=== PATIENT | female | born 1940 | race Caucasian/White ===

== ENCOUNTER 2018-01-14 10:25 | Inpatient (IN) ==
[2018-01-14] MEDS ORDERED: 0.9 % Sodium Chloride 1,000 ML IVC ONE (10:29)
--- NOTE | 2018-01-14 10:39 | Emergency Department Note ---
Disposition Clinical Impression: Pyelonephritis Disposition: Admitted As Inpatient Condition: Fair General Adult HPI - General Chief complaint: ED General Medical Stated complaint: Nephrostomy issue Time Seen by Provider: 01/14/18 10:29 Source: patient Mode of arrival: ambulatory Limitations: no limitations Nursing Notes Reviewed: Yes Vital Signs Reviewed: Yes - History of Present Illness HPI Narrative: Patient presents today from interventional radiology after she was having her nephrectomy tube placed. Patient states tubes replaced secondary to renal failure. The patient was seen over the weekend secondary to nephrectomy tube was leaking. Urology and interventional radiology agreed on replacements today. Upon refractory tube replacement was described as ezequiel pus was obtained from both kidneys the right being worse than the left. The patient is well-known to the interventional radiology staff and they state that she is not quite herself today. On evaluation with the patient she states that she feels more weak than usual. She is Joshua starting to feel somewhat improved since the first 3 tubes were replaced. She describes decreased appetite and generalized weakness and fatigue. No fevers or chills. The nephrectomy sites did not show any signs of infection. Patient did present to the emergency department with initial heart rate greater than 100. White count 14 and no source of infection. Sepsis order set utilized. - Related Data Home Medications Medication Instructions Recorded Confirmed Amlodipine Besylate 10 mg PO DAILY 01/14/18 01/14/18 Fluticasone Propionate Nasal 2 spr NS DAILY PRN 01/14/18 01/14/18 [Flonase] Lisinopril [Zestril] 20 mg PO DAILY 01/14/18 01/14/18 Loratadine [Allergy Relief] 10 mg PO DAILY 01/14/18 01/14/18 Allergies Allergy/AdvReac Type Severity Reaction Status Date / Time No Known Allergies Allergy Verified 01/12/18 17:40 Review of Systems: CONSTITUTIONAL: Weakness and fatigue. No fevers or chills. HEENT: Eyes: No visual changes. Ears, Nose, Throat: No hearing loss, difficulty talking or unable to swallow. SKIN: No rash or itching. CARDIOVASCULAR: No chest pain, chest pressure or chest discomfort. No palpitations or edema. RESPIRATORY: No shortness of breath, cough or sputum. GASTROINTESTINAL: Decreased appetite. No abdominal pain GENITOURINARY: No burning on urination or hematuria. NEUROLOGICAL: No headache, dizziness, syncope, paralysis, ataxia, numbness or tingling in the extremities. No change in bowel or bladder control. MUSCULOSKELETAL: No muscle pain, back pain, joint pain or stiffness. Past Medical History - Past Medical History Medical history: Reports: cancer, hyperlipidemia, hypertension, kidney stones, renal disease, other Surgical history: Reports: other Psychiatric history: Reports: no psych history [employer]IAN history: Reports: cervical cancer - Social History Smoking Status: Never smoker Smokeless Tobacco Status: No Alcohol use: Reports: none Drug use: Reports: none Physical Exam General: Well appearing, nontoxic, no acute distress Head: Normocephalic Atraumatic Eyes: PERRL, EOMI ENT: Airway patent, no stridor Neck: supple, no meningismus Chest: Lungs clear to auscultation bilateral Cardiac: Regular rate and rhythm, no murmurs, rubs or gallops Abdomen: soft, nontender, nondistended; no guarding, rebound, or tenderness to percussion Musculoskeletal: Calves symmetric, nontender, no palpable cord Skin: No rash, normal skin tone Neuro: Alert and Oriented to person, place, and time; No focal deficit, CN 2-12 symmetric and intact Course - Consultations Consultation #1: Discussed with urology, Dr. Freeman. Treat as per infection. He will consult if needed but does not believe this will be needed. Consultation #2: Discussed with Dr. Givens. No previous cultures. Ceftriaxone requested. Unasyn was given 1.5 mg prior to being in the ED.
[2018-01-14 11:18] LABS: Albumin 3.9 g/dL (3.5-5.7); Albumin/Globulin Ratio 0.8 (1.1-2.2); Bilirubin,Total 0.3 mg/dL (0.3-1.0); Calcium 9.8 mg/dL (8.6-10.3); Globulin 4.7 g/dL (2.4-3.5); Potassium 5.5 mEq/L (3.5-5.1); Total Protein 8.6 g/dL (6.4-8.9)
[2018-01-14] MEDS ORDERED: Ampicillin/Sulbactam 1,500 MG in 0.9 % Sodium Chloride Mini Bag 100 ML IVPB ONE (11:20)
[2018-01-14] MEDS ORDERED: cefTRIAXone 2,000 MG in 0.9 % Sodium Chloride Mini Bag 100 ML IVPB ONE (12:06)
[2018-01-14] MEDS ORDERED: Naloxone 0.4 MG/ML INJ IVP PRN (12:17)
[2018-01-14] MEDS ORDERED: Fluticasone Propionate Nasal 50 MCG/SPRAY BOTTLE NS PRN (12:20)
--- NOTE | 2018-01-14 12:28 | Internal Med History&Physical ---
Date of Encounter: 01/14/18 Time of Encounter: 12:45 Internal Medicine - H&P: HPI Chief complaint: Leaking nephrostomy tube Admitted From: Home Plans for Post Hospital Care: Home History of present illness: Ms. Alcantar is a 77 year old female who presented from cardiology after she had both nephrostomy tubes replaced. Upon replacement urine was described as ezequiel polyps from both sites but more on the right. Patient denied having any fever but she states that she was feeling very weak and not herself. She had decreased appetite and more fatigued. No fever or chills. No chest pain shortness of breath no abdominal pain no changes in bowel movement. She was seen by urology are in agreement with nephrostomy tube changes and admission. Past Med Surg Social Fam HX - Past Medical History Medical history: cancer, hyperlipidemia, hypertension, kidney stones, renal disease, other Additional medical history: hx of cervical cancer with radiation Psychiatric history: no psych history - Past Surgical History Surgical History: other Additional surgical history: bi-lat nephrostomy tube - Social History Smoking Status: Never smoker Smokeless Tobacco Status: No Alcohol use: none Drug use: none - Family History Mother Hx Family Cancer: Yes Internal Medicine - H&P: Meds Amlodipine Besylate 10 mg PO DAILY 01/14/18 [History] Fluticasone Propionate Nasal [Flonase] 2 spr NS DAILY PRN 01/14/18 [History] Lisinopril [Zestril] 20 mg PO DAILY 01/14/18 [History] Loratadine [Allergy Relief] 10 mg PO DAILY 01/14/18 [History] 3 Allergy/AdvReac Type Severity Reaction Status Date / Time No Known Allergies Allergy Verified 01/12/18 17:40 ROS unobtainable: due to mental status All Systems PM: A 10-system review of systems was performed and is negative for pertinent findings except as documented above in the HPI. - Constitutional Vitals: Temp Pulse Resp BP Pulse Ox 98.3 F 76 16 143/76 97 01/14/18 10:34 01/14/18 10:34 01/14/18 10:34 01/14/18 10:34 01/14/18 10:34 - Head Head exam: Present: atraumatic, normocephalic - Eye Eye exam: Present: PERRL, conjuntiva pink, sclera anicteric Pupils: Present: PERRL - Neck Neck exam general surgery: Present: supple, trachea midline. Absent: lymphadenopathy - Respiratory Respiratory exam: Present: CTAB. Absent: accessory muscle use, rales, rhonchi, wheezes - Cardiovascular Cardiovascular exam: Present: RRR, +S1, +S2. Absent: diastolic murmur, gallop, rubs, systolic murmur - GI/Abdominal GI/Abdominal exam: Present: normal bowel sounds, soft, no peritoneal signs. Absent: distended, tenderness Additional comments: Bilateral nephrostomy tubes - Extremities Exam Extremities exam: Present: warm, radial pulses palpable and symmetrical. Absent : calf tenderness, cyanotic, pedal edema - Neurological Exam Neurological exam: Present: CN II-XII intact, oriented X3, no focal deficits. Absent: pronater drift, facial droop, speech deficit Internal Med - H&P Results - Labs CBC & Chem 7: 01/14/18 10:39 - Assessment and plan (1) Urinary tract infection Current Visit: Yes Status: Acute Assessment and plan: Patient was given IV Unasyn before presentation to the emergency department Urine culture and blood cultures We will start the patient on IV ceftriaxone Check pro-calcitonin level Follow culture results Will get basic lab with CBC. Patient is afebrile Qualifiers: Qualified Code(s): N39.0 - Urinary tract infection, site not specified (2) Malfunction of nephrostomy tube Current Visit: No Status: Acute Assessment and plan: Status post bilateral nephrostomy tubes replacement (3) Hyperkalemia Current Visit: Yes Status: Acute Assessment and plan: Potassium was found to be 5.5 Continue with IV hydration We will give her a dose of Kayexalate. Repeat potassium level NPM and manage accordingly (4) Acute kidney injury Current Visit: Yes Status: Acute Assessment and plan: Superimposed on chronic kidney disease stage IV. Creatinine is above baseline IV hydration was normal saline Hold lisinopril. Avoid nephrotoxic agents Monitor kidney function tests (5) On esomeprazole prophylaxis Current Visit: Yes Status: Acute (6) DVT prophylaxis Current Visit: Yes Status: Acute - Time Spent With Patient Total time spent is greater than 50% in coordination of care (as documented) at patient's floor/unit and/or counseling patient:
[2018-01-14 12:41] LABS: Basophils % 0.1 %; Hematocrit 27.1 % (35.3-44.9); Hemoglobin 8.5 g/dL (11.5-15.4); Immature Granulocytes % 1.4 % (0-4); Lymphocytes # 0.4 K/mcL (0.6-4.6); Lymphocytes % 3.2 %; Mean Corpuscular HGB Conc 31.4 g/dL (31.6-35.5); Mean Corpuscular Hemoglobin 31.8 pg (28.0-33.3); Mean Corpuscular Volume 101.5 fL (83.0-100.0); Mean Platelet Volume 8.7 fL (9.4-12.4); Monocytes # 0.7 K/mcL (0.0-1.3); Monocytes % 5.4 %; Neutrophils # 11.8 K/mcL (1.6-8.9); Platelet Count 386 K/mcL (140-400); Red Blood Count 2.67 M/mcL (3.82-4.97); Red Cell Distribution Width 14.7 % (11.5-14.5); Segmented Neutrophils % 89.9 %
[2018-01-14] MEDS: 0.9 % Sodium Chloride 1,000 ML IVC SCH (13:31)
[2018-01-14 14:09] LABS: Bilirubin,Urine Negative (Negative); Blood,Urine Large (Negative); Clarity,Urine Turbid (Clear); Color,Urine Yellow (Yellow); Glucose,Urine (UA) Normal (Normal); Ketones,Urine Negative (Negative); Leukocyte Esterase,Urine Large (Negative); Nitrite,Urine Negative (Negative); Protein,Urine 100 mg/dL (Neg-Trace); Specific Gravity,Urine 1.019 (1.010-1.025); Urobilinogen,Urine Normal (Normal)
[2018-01-14 14:11] LABS: Bacteria,Urine None Seen per hpf (None-Few); Hyaline Casts,Urine None Seen per lpf (None-Few); RBC,Urine TNTC per hpf (0-3); Squamous Epithelial Cell,Urine None Seen per lpf (None-Few); WBC,Urine TNTC per hpf (0-3)
[2018-01-14] MEDS: *HR* Heparin 5,000 UNIT/ML VIAL SQ SCH (17:45)
[2018-01-15] MEDS: 0.9 % Sodium Chloride 1,000 ML IVC SCH (02:50)
[2018-01-15 05:56] LABS: Basophils % 0.2 %; Eosinophils % 0.1 %; Hematocrit 20.5 % (35.3-44.9); Immature Granulocytes % 2.2 % (0-4); Lymphocytes # 0.7 K/mcL (0.6-4.6); Lymphocytes % 7.5 %; Mean Corpuscular HGB Conc 31.2 g/dL (31.6-35.5); Mean Corpuscular Hemoglobin 30.9 pg (28.0-33.3); Mean Platelet Volume 8.7 fL (9.4-12.4); Monocytes # 0.5 K/mcL (0.0-1.3); Monocytes % 5.3 %; Neutrophils # 7.3 K/mcL (1.6-8.9); Platelet Count 301 K/mcL (140-400); Red Blood Count 2.07 M/mcL (3.82-4.97); Red Cell Distribution Width 14.8 % (11.5-14.5); Segmented Neutrophils % 84.7 %
[2018-01-15 05:59] LABS: Hemoglobin 6.4 g/dL (11.5-15.4)
[2018-01-15] MEDS ORDERED: *HR* Enoxaparin 30 MG/0.3 ML SYRINGE SQ SCH (06:00)
[2018-01-15] MEDS: *HR* Heparin 5,000 UNIT/ML VIAL SQ SCH ×2 (06:06→17:24)
[2018-01-15 06:18] LABS: Calcium 8.4 mg/dL (8.6-10.3); Potassium 4.4 mEq/L (3.5-5.1)
[2018-01-15] MEDS: cefTRIAXone 1,000 MG in Water for inj. (sterile) 20 ML 10 ML IVP SCH (07:09)
[2018-01-15] MEDS: amLODIPine 5 MG TABLET PO SCH (07:09)
[2018-01-15] MEDS: Loratadine 10 MG TABLET PO SCH (07:09)
[2018-01-15] MEDS ORDERED: 0.9 % Sodium Chloride 250 ML IVC SCH (17:45)
[2018-01-15] MEDS ORDERED: 0.9 % Sodium Chloride 500 ML ONE (21:10)
--- NOTE | 2018-01-15 21:45 | Internal Med Progress Note ---
Date of Encounter: 01/15/18 Time of Encounter: 21:45 - Assessment and plan (1) Urinary tract infection Current Visit: No Status: Acute Qualifiers: Urinary tract infection type: site unspecified Hematuria presence: without hematuria Qualified Code(s): N39.0 - Urinary tract infection, site not specified (2) Acute kidney injury Current Visit: Yes Status: Acute (3) Malfunction of nephrostomy tube Current Visit: No Status: Acute (4) Hypertensive renal disease with renal failure Current Visit: Yes Status: Chronic - Time Spent With Patient Total time spent is greater than 50% in coordination of care (as documented) at patient's floor/unit and/or counseling patient: 25 - 35 minutes - Subjective Interval history: .. The patient feels good. Other than feeling weak, she is not voicing any other problems. She is stronger than yesterday. Denies chest pain. Denies abdominal pain, nausea and vomiting. Her nephrostomy tubes are draining clear urine. They were replaced yesterday. OBJECTIVE: .. Skin: Free of rash and discoloration. Respiratory: Normal breath sounds; no crackles or wheezes. CV: Heart is regular; no gallop or murmur. GI: Abdomen is soft and not tender. There is no palpable mass or visceromegaly. Neuro: There is no focal deficits. ASSESSMENT AND PLAN: .. Urinary tract infection. Her urine is showing changes typical for urinary tract infection. Urine culture is pending. We will continue IV Rocephin. Acute kidney injury. Better after giving her IV fluids. I encouraged her to take a lot of oral fluids. Malfunctioning nephrostomy tubes. There were replaced yesterday. She does have them replaced every 3 months. Hyprtensive renal disease with renal failure. She is CK disease stage III. I anticipate her discharge tomorrow. - Constitutional Vitals: Temp Pulse Resp BP Pulse Ox 99.5 F 87 16 147/74 97 01/15/18 21:42 01/15/18 21:42 01/15/18 21:42 01/15/18 21:42 01/15/18 21:42 General appearance: Present: pleasant, no acute distress, answers questions appropriately Internal Medicine: Result - Labs CBC & Chem 7: 01/16/18 01:15 01/16/18 01:15 Labs: Short CBC 01/15/18 Range/Units 05:27 WBC 8.6 (4.3-11.1) K/mcL Hgb 6.4 L D (11.5-15.4) g/dL Hct 20.5 L (35.3-44.9) % Plt Count 301 (140-400) K/mcL Neutrophils # 7.3 (1.6-8.9) K/mcL BMP 01/15/18 05:27 Sodium 141 Potassium 4.4 Chloride 120 H Carbon Dioxide 10 L* BUN 63 H Creatinine 3.39 H Glucose 94 Calcium 8.4 L Consult Discharge Plan - Plan Referrals: Tamara Granda MD [Primary Care Provider] - (Web Request entered. Office will call patient at home with date and time of appt. Thank you) Prescriptions: Cefdinir [Omnicef] 300 mg PO BID #10 capsule
[2018-01-15] MEDS ORDERED: Simethicone 80 MG TAB.CHEW PO PRN (23:28)
[2018-01-16 01:57] LABS: Basophils % 0.3 %; Eosinophils # 0.1 K/mcL (0.0-0.6); Eosinophils % 0.5 %; Hematocrit 31.5 % (35.3-44.9); Immature Granulocytes % 5.8 % (0-4); Lymphocytes # 0.4 K/mcL (0.6-4.6); Lymphocytes % 3.8 %; Mean Corpuscular HGB Conc 32.7 g/dL (31.6-35.5); Mean Corpuscular Hemoglobin 30.8 pg (28.0-33.3); Mean Corpuscular Volume 94.3 fL (83.0-100.0); Mean Platelet Volume 8.6 fL (9.4-12.4); Monocytes # 0.3 K/mcL (0.0-1.3); Monocytes % 3.6 %; Nucleated Red Blood Cells 0.2 /100 WBC (0); Platelet Count 310 K/mcL (140-400); Red Blood Count 3.34 M/mcL (3.82-4.97); Red Cell Distribution Width 16.3 % (11.5-14.5)
[2018-01-16 02:24] LABS: Calcium 8.5 mg/dL (8.6-10.3); Magnesium 1.6 mg/dL (1.6-2.6); Potassium 4.4 mEq/L (3.5-5.1)
[2018-01-16 02:55] LABS: Hemoglobin 10.3 g/dL (11.5-15.4); Neutrophils # 8.1 K/mcL (1.6-8.9)
[2018-01-16 03:03] LABS: Platelet Estimate Normal (Normal)
[2018-01-16] MEDS: *HR* Heparin 5,000 UNIT/ML VIAL SQ SCH (05:43)
[2018-01-16 06:52] VITALS: BP 138/75
--- NOTE | 2018-01-16 10:02 | Discharge Summary ---
Date of Encounter: 01/16/18 Time of Encounter: 10:00 - Discharge Diagnosis (1) Urinary tract infection Priority: Primary Status: Acute Qualifiers: Urinary tract infection type: site unspecified Hematuria presence: without hematuria Qualified Code(s): N39.0 - Urinary tract infection, site not specified (2) Acute kidney injury Priority: Secondary Status: Acute (3) Malfunction of nephrostomy tube Priority: Secondary Status: Acute (4) Hypertensive renal disease with renal failure Priority: Secondary Status: Chronic Hospital course: Ms. Alcantar is a 77 year old female The patient was admitted to the hospital shortly after replacing her bilateral nephrostomy tube. Her urine showed 2 changes suspected for urinary tract infection. She complained of feeling weak and tiredin the last 2 days preceding this admission. she was found to have mild acute kidney injury on top of CKD stage III. We offered her IV Unasyn, substituted by IV Rocephin. We offered her IV fluids. Urine culture is not growing any organisms; it is preliminary. Her hemoglobin at admission was 8.5; had decreased to 6.4 after IV hydration. We transfused her with 2 units of packed red blood cells. We did not see any evidence for GI bleeding. This patient has had long-standing history of chronic anemia, likely secondary to chronic kidney disease. Her hemoglobin from today is 10.3. Her creatinine today is 3.10; baseline. She feels good. This is her baseline. Denies chest pain. Denies difficulty breathing, coughing and wheezing. Denies abdominal pain, nausea and vomiting. She does have bilateral nephrostomy tube. The urine drained to the collection bags is looking normal. I am discharging her home today. We will continue Omnicef for the next 5 days. Follow up with urology in about 3 months. She does have her nephrostomy tubes replaced every 3 months. Discharge discussed with: patient, nurse - Time Spent with Patient Total time spent providing and/or coordinating discharge services: Greater than 30 minutes (40 minutes) - Discharge Medications Prescriptions: Cefdinir [Omnicef] 300 mg PO BID #10 capsule Home Medications: Amlodipine Besylate 10 mg PO DAILY 01/14/18 [History] Fluticasone Propionate Nasal [Flonase] 2 spr NS DAILY PRN 01/14/18 [History] Lisinopril [Zestril] 20 mg PO DAILY 01/14/18 [History] Loratadine [Allergy Relief] 10 mg PO DAILY 01/14/18 [History] Cefdinir [Omnicef] 300 mg PO BID #10 capsule 01/16/18 [Rx] Allergies/Adverse Reactions: 3 Allergy/AdvReac Type Severity Reaction Status Date / Time No Known Allergies Allergy Verified 01/12/18 17:40 Date of admission: 01/14/18 12:17 Primary care physician: Tamara Granda Discharging clinician: Roland Hoang Anticipated date of discharge: 01/16/18 - Constitutional Vitals: Temp Pulse Resp BP Pulse Ox 99.3 F 88 16 138/75 97 01/16/18 06:42 01/16/18 06:42 01/16/18 06:42 01/16/18 06:42 01/16/18 06:42 General appearance: Present: pleasant, no acute distress, answers questions appropriately - Respiratory Respiratory exam: Present: CTAB. Absent: accessory muscle use, rales, rhonchi, wheezes - Cardiovascular Cardiovascular exam: Present: RRR, +S1, +S2. Absent: diastolic murmur, gallop, rubs, systolic murmur - GI/Abdominal GI/Abdominal exam: Present: normal bowel sounds, soft, no peritoneal signs. Absent: distended, tenderness - Patient Status Disposition: Home, Self-Care Condition: Good Functional capacity at discharge: independent ambulation - Discharge Instructions Follow Up With: Tamara Granda MD [Primary Care Provider] - (Web Request entered. Office will call patient at home with date and time of appt. Thank you) Forms: ED Satisfaction Letter, Work/School Release - Diet and Activity Activity: resume usual activities as tolerated - VTE Deep Vein Thrombosis/Pulmonary Embolism Present on Admission: No
[2018-01-16] MEDS: Loratadine 10 MG TABLET PO SCH (11:35)
[2018-01-16] MEDS: amLODIPine 5 MG TABLET PO SCH (11:35)
[2018-01-16] MEDS: cefTRIAXone 1,000 MG in Water for inj. (sterile) 20 ML 10 ML IVP SCH (11:36)
[2018-01-17 11:49] LABS: Acinetobacter baumannii by PCR Not Detected (Not Detect); Candida albicans by PCR Not Detected (Not Detect); Candida glabrata by PCR Not Detected (Not Detect); Candida krusei by PCR Not Detected (Not Detect); Candida parapsilosis by PCR Not Detected (Not Detect); Candida tropicalis by PCR Not Detected (Not Detect); Enterococcus by PCR Not Detected (Not Detect); Escherichia coli by PCR Not Detected (Not Detect); Klebsiella oxytoca by PCR Not Detected (Not Detect); Klebsiella pneumoniae by PCR ***DETECTED*** (Not Detect); Pseudomonas aeruginosa by PCR Not Detected (Not Detect); Serratia marcescens by PCR Not Detected (Not Detect); Staphylococcus aureus by PCR Not Detected (Not Detect); Streptococcus agalactiae(B)PCR Not Detected (Not Detect); Streptococcus by PCR Not Detected (Not Detect); Streptococcus pneumoniae PCR Not Detected (Not Detect); Streptococcus pyogenes (A) PCR Not Detected (Not Detect); blaKPC Carbapenem-Resist Gene Not Detected (Not Detect)
== END 2018-01-16 14:42 | disposition home or self-care (01) | DRG 690 ==
LOC: EMEROO 10:25 → 3ANU 10:25 → SUATTDRO 12:17 → 3ANU 12:43
PROVIDERS: ADMIT Internal Medicine; ATTEND Internal Medicine

== ENCOUNTER 2018-06-19 05:49 | Inpatient (IN) ==
--- NOTE | 2018-06-19 06:27 | Emergency Department Note ---
Disposition Clinical Impression: Nephrostomy tube failure with subsequent urine leak Infection associated with nephrostomy catheter Qualifiers: Encounter type: initial encounter Qualified Code(s): T83.512A - Infection and inflammatory reaction due to nephrostomy catheter, initial encounter Disposition: Admitted As Inpatient Condition: Good General Adult HPI - General Chief complaint: ED General Medical Stated complaint: Leaking R Neph Tube Time Seen by Provider: 06/19/18 06:06 Source: family Limitations: no limitations Nursing Notes Reviewed: Yes Vital Signs Reviewed: Yes - History of Present Illness HPI Narrative: 77 year old female with bilateral Nephrostomy Tubes presents with right tube leaking since 4 o'clock this morning (2 hours ago). The tubes were inserted in April and due to July. Pt emptied urine bag before came to ER. Pt stated it was clear urine. pt denied back pain. Denied chills and fever. Pt reported sepsis history due to delayed replacement of leaking tube in January. Pt's urologist is Dr. Freeman. Onset (ago): hour(s) (2) Location: back Radiation: non-radiation Pain Scale: 0 - Related Data Home Medications Medication Instructions Recorded Confirmed Amlodipine Besylate 10 mg PO DAILY 01/14/18 06/19/18 Fluticasone Propionate Nasal 2 spr NS DAILY PRN 01/14/18 06/19/18 [Flonase] Lisinopril [Zestril] 20 mg PO DAILY 01/14/18 06/19/18 Loratadine [Allergy Relief] 10 mg PO DAILY 01/14/18 06/19/18 Cyanocobalamin (B-12) [Vitamin B12] 1,000 mcg PO DAILY 06/19/18 06/19/18 Iron Polysaccharide Complex [Pro 180 mg PO DAILY 06/19/18 06/19/18 Fe] Allergies Allergy/AdvReac Type Severity Reaction Status Date / Time No Known Allergies Allergy Verified 06/19/18 07:20 Constitutional: Denies: fever, chills Eyes: Denies: eye pain ENT ED: Denies: ear pain Cardiovascular: Denies: chest pain Respiratory: Denies: cough, dyspnea Gastrointestinal: Denies: abdominal pain Genitourinary: Reports: other (Nephrostomy Tube leaking). Denies: urgency, dysuria Musculoskeletal: Denies: back pain Integumentary: Denies: rash Neurological: Denies: headache Psychiatric: Denies: anxiety Endocrine: Denies: fatigue Hematological/Lymphatic: Denies: easy bleeding Allergic/Immunologic: Denies: facial swelling Past Medical History - Past Medical History Medical history: Reports: cancer, hyperlipidemia, hypertension, kidney stones, renal disease, other Surgical history: Reports: other Psychiatric history: Reports: no psych history [employer] history: Reports: cervical cancer - Social History Smoking Status: Never smoker Smokeless Tobacco Status: No Alcohol use: Reports: none Drug use: Reports: none Physical Exam - General Limitations: no limitations General appearance: alert, in no apparent distress - Head Head exam: atraumatic - Eye Eye exam: Present: normal appearance. Absent: scleral icterus, conjunctival injection - ENT ENT exam: normal exam - Neck Neck exam: Present: normal inspection, full ROM, trachea midline - Chest Chest inspection: Present: normal inspection - Respiratory Respiratory exam: Present: normal lung sounds bilaterally. Absent: respiratory distress, wheezes - Cardiovascular Cardiovascular exam: Present: regular rate - Abdominal Exam Abdominal exam: Present: soft, Non-Tender - Extremities Exam Extremities exam: Present: normal inspection, full ROM. Absent: tenderness - Back Exam Back exam: Present: normal inspection, full ROM, other (dressing on right nephrostomy tube wet, very tiny pus noted on dressing, no erythema, no swelling, no tender on skin) - Neurological Exam Neurological exam: Present: alert, oriented X3 - Psychiatric Psychiatric exam: Present: normal affect, normal mood - Skin Skin exam: Present: warm, intact Course - Reevaluation(s) Time: 09:11 (Pt is taken to IR for Neph tube replacement.) Time: 10:29 (IR report that found pus in new neph tube, antibiotics started, labs ordered, septic protocal started, pt will be admit for observation.) Vital Signs Temperature 98.4 F 06/19/18 05:55 Pulse Rate 116 06/19/18 05:55 Respiratory Rate 20 06/19/18 05:55 Blood Pressure 164/91 06/19/18 05:55 O2 Sat by Pulse Oximetry 100 06/19/18 05:55 Temperature 98.4 F 06/19/18 05:55 Pulse Rate 95 06/19/18 12:05 Respiratory Rate 18 06/19/18 12:05 Blood Pressure 166/71 06/19/18 08:00 O2 Sat by Pulse Oximetry 100 06/19/18 12:05 Oxygen Delivery Oxygen Delivery Room Air Medical Decision Making - MDM Narrative Medical decision making narrative: 77 year old female with nephrostomy tubes secondary to remote uterine cancer and chemotherapy presents for right tube leaking since this morning. no chills and fever. No back pain. Due date for replacement is in July. Pt reported history of sepsis due to delayed tube replacement in January. Consult interventional radiology. Pt was found pus in right kidney by IR. Pt's heart rate is 107. Concerning of developing sepsis. Septic protocol started, labs ordered. Dr. Galdamez has seen the patient and agrees to admit patient for IV antibiotics. Spoke with Hospitalist Dr. Alejandro. Pt is accepted. - Medical Records Medical records reviewed: Yes I reviewed the patient's medical records. - Lab Data Lab results reviewed: Yes I reviewed the patient's lab results. Result diagrams: 06/19/18 10:50 06/19/18 10:50 Lab Results 06/19/18 06/19/18 06/19/18 Range/Units 07:50 10:50 10:50 WBC 8.3 (4.3-11.1) K/mcL RBC 2.75 L (3.82-4.97) M/mcL Hgb 8.6 L (11.5-15.4) g/dL Hct 27.5 L (35.3-44.9) % MCV 100.0 (83.0-100.0) fL MCH 31.3 (28.0-33.3) pg MCHC 31.3 L (31.6-35.5) g/dL RDW 13.3 (11.5-14.5) % Plt Count 223 (140-400) K/mcL MPV 8.8 L (9.4-12.4) fL Immature Gran % 0.5 (0-4) % Seg Neutrophils % 84.4 % Lymphocytes % 8.7 % Monocytes % 6.3 % Eosinophils % 0.0 % Basophils % 0.1 % Neutrophils # 7.0 (1.6-8.9) K/mcL Lymphocytes # 0.7 (0.6-4.6) K/mcL Monocytes # 0.5 (0.0-1.3) K/mcL Eosinophils # 0.0 (0.0-0.6) K/mcL Basophils # 0.0 (0.0-0.2) K/mcL PT 13.5 H (9.4-12.1) Seconds INR 1.2 Sodium 136 (136-145) mEq/L Potassium 6.2 H (3.5-5.1) mEq/L Chloride 114 H (98-107) mEq/L Carbon Dioxide 14 L (23-29) mEq/L BUN 62 H (8-23) mg/dL Creatinine 4.39 H (0.60-1.20) mg/dL Est GFR ( Amer) 12 L (> 60) Est GFR (Non-Af Amer) 10 L (> 60) BUN/Creatinine Ratio 14 (6-26) Glucose 114 H (70-105) mg/dL Calculated Osmolality 300 (280-300) Lactic Acid (0.5-2.2) mmol/L Calcium 9.4 (8.6-10.3) mg/dL Total Bilirubin 0.3 (0.3-1.0) mg/dL AST 10 L (13-39) Units/L ALT 10 (7-52) Units/L Alkaline Phosphatase 83 (34-104) Units/L Serum Total Protein 8.2 (6.4-8.9) g/dL Albumin 3.7 (3.5-5.7) g/dL Globulin 4.5 H (2.4-3.5) g/dL Albumin/Globulin Ratio 0.8 L (1.1-2.2) 06/19/18 Range/Units 10:50 WBC (4.3-11.1) K/mcL RBC (3.82-4.97) M/mcL Hgb (11.5-15.4) g/dL Hct (35.3-44.9) % MCV (83.0-100.0) fL MCH (28.0-33.3) pg MCHC (31.6-35.5) g/dL RDW (11.5-14.5) % Plt Count (140-400) K/mcL MPV (9.4-12.4) fL Immature Gran % (0-4) % Seg Neutrophils % % Lymphocytes % % Monocytes % % Eosinophils % % Basophils % % Neutrophils # (1.6-8.9) K/mcL Lymphocytes # (0.6-4.6) K/mcL Monocytes # (0.0-1.3) K/mcL Eosinophils # (0.0-0.6) K/mcL Basophils # (0.0-0.2) K/mcL PT (9.4-12.1) Seconds INR Sodium (136-145) mEq/L Potassium (3.5-5.1) mEq/L Chloride (98-107) mEq/L Carbon Dioxide (23-29) mEq/L BUN (8-23) mg/dL Creatinine (0.60-1.20) mg/dL Est GFR ( Amer) (> 60) Est GFR (Non-Af Amer) (> 60) BUN/Creatinine Ratio (6-26) Glucose (70-105) mg/dL Calculated Osmolality (280-300) Lactic Acid 1.3 (0.5-2.2) mmol/L Calcium (8.6-10.3) mg/dL Total Bilirubin (0.3-1.0) mg/dL AST (13-39) Units/L ALT (7-52) Units/L Alkaline Phosphatase (34-104) Units/L Serum Total Protein (6.4-8.9) g/dL Albumin (3.5-5.7) g/dL Globulin (2.4-3.5) g/dL Albumin/Globulin Ratio (1.1-2.2)
[2018-06-19 08:07] LABS: INR 1.2; Prothrombin Time 13.5 Seconds (9.4-12.1)
[2018-06-19] MEDS ORDERED: 0.9 % Sodium Chloride 500 ML ONE (09:50)
[2018-06-19] MEDS ORDERED: Ampicillin/Sulbactam 1,500 MG in 0.9 % Sodium Chloride Mini Bag 100 ML IVPB ONE (10:12)
[2018-06-19] MEDS ORDERED: Isovue-300 50 ML VIAL IVP ONE (10:12)
[2018-06-19 11:07] LABS: Basophils % 0.1 %; Hematocrit 27.5 % (35.3-44.9); Hemoglobin 8.6 g/dL (11.5-15.4); Immature Granulocytes % 0.5 % (0-4); Lymphocytes # 0.7 K/mcL (0.6-4.6); Lymphocytes % 8.7 %; Mean Corpuscular HGB Conc 31.3 g/dL (31.6-35.5); Mean Corpuscular Hemoglobin 31.3 pg (28.0-33.3); Mean Platelet Volume 8.8 fL (9.4-12.4); Monocytes # 0.5 K/mcL (0.0-1.3); Monocytes % 6.3 %; Platelet Count 223 K/mcL (140-400); Red Blood Count 2.75 M/mcL (3.82-4.97); Red Cell Distribution Width 13.3 % (11.5-14.5); Segmented Neutrophils % 84.4 %
--- NOTE | 2018-06-19 11:10 | Emergency Department Note ---
Disposition Clinical Impression: Nephrostomy tube failure with subsequent urine leak Disposition: Home, Self-Care Condition: Good Referrals: Tamara Granda MD [Primary Care Provider] - Forms: ED Satisfaction Letter, Work/School Release General Adult HPI - General Chief complaint: ED General Medical Stated complaint: Leaking R Neph Tube Time Seen by Provider: 06/19/18 06:06 Source: family Limitations: no limitations - History of Present Illness Location: back Pain Scale: 0 - Related Data Home Medications Medication Instructions Recorded Confirmed Amlodipine Besylate 10 mg PO DAILY 01/14/18 06/19/18 Fluticasone Propionate Nasal 2 spr NS DAILY PRN 01/14/18 06/19/18 [Flonase] Lisinopril [Zestril] 20 mg PO DAILY 01/14/18 06/19/18 Loratadine [Allergy Relief] 10 mg PO DAILY 01/14/18 06/19/18 Cyanocobalamin (B-12) [Vitamin B12] 1,000 mcg PO DAILY 06/19/18 06/19/18 Iron Polysaccharide Complex [Pro 180 mg PO DAILY 06/19/18 06/19/18 Fe] Allergies Allergy/AdvReac Type Severity Reaction Status Date / Time No Known Allergies Allergy Verified 06/19/18 07:20 Constitutional: Denies: fever, chills Eyes: Denies: eye pain ENT ED: Denies: ear pain Cardiovascular: Denies: chest pain Respiratory: Denies: cough, dyspnea Gastrointestinal: Denies: abdominal pain Genitourinary: Reports: other (Nephrostomy Tube leaking). 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: Reports: cervical cancer - Social History Smoking Status: Never smoker Smokeless Tobacco Status: No Alcohol use: Reports: none Drug use: Reports: none Physical Exam - General Limitations: no limitations General appearance: alert, in no apparent distress Course Vital Signs Temperature 98.4 F 06/19/18 05:55 Pulse Rate 116 06/19/18 05:55 Respiratory Rate 20 06/19/18 05:55 Blood Pressure 164/91 06/19/18 05:55 O2 Sat by Pulse Oximetry 100 06/19/18 05:55 Temperature 98.4 F 06/19/18 05:55 Pulse Rate 96 06/19/18 08:00 Respiratory Rate 20 06/19/18 08:00 Blood Pressure 166/71 06/19/18 08:00 O2 Sat by Pulse Oximetry 99 06/19/18 08:00 Oxygen Delivery Oxygen Delivery Room Air Medical Decision Making - Lab Data Lab Results 06/19/18 Range/Units 07:50 PT 13.5 H (9.4-12.1) Seconds INR 1.2 Attestation Statement - Attestation Attestation: For this encounter, I have reviewed the SPA ASSOCIATE or PA documentation, treatment plan, and medical decision making; and I have had face to face time with this patient. Patient comes in requesting nephrostomy tube change. Nephrostomy tubes were placed following changes secondary to chemotherapy and radiation. Nephrostomy tube was changed by IR. She was noted to have purulent drainage from the kidney. Patient will be admitted for IV antibiotic.
[2018-06-19 11:29] LABS: Albumin 3.7 g/dL (3.5-5.7); Albumin/Globulin Ratio 0.8 (1.1-2.2); Bilirubin,Total 0.3 mg/dL (0.3-1.0); Calcium 9.4 mg/dL (8.6-10.3); Globulin 4.5 g/dL (2.4-3.5); Potassium 6.2 mEq/L (3.5-5.1); Total Protein 8.2 g/dL (6.4-8.9)
[2018-06-19 11:51] LABS: Bilirubin,Urine Negative (Negative); Blood,Urine Large (Negative); Clarity,Urine Turbid (Clear); Color,Urine Red (Yellow); Glucose,Urine (UA) Normal (Normal); Ketones,Urine Trace mg/dL (Negative); Leukocyte Esterase,Urine Moderate (Negative); Nitrite,Urine Positive (Negative); Protein,Urine >=1000 mg/dL (Neg-Trace); Specific Gravity,Urine 1.012 (1.010-1.025); Urobilinogen,Urine Normal (Normal)
[2018-06-19 11:54] LABS: Bacteria,Urine None Seen per hpf (None-Few); Hyaline Casts,Urine None Seen per lpf (None-Few); RBC,Urine TNTC per hpf (0-3); Squamous Epithelial Cell,Urine None Seen per lpf (None-Few); WBC,Urine 50-100 per hpf (0-3)
[2018-06-19] MEDS ORDERED: Insulin Human Regular 6 UNIT in 0.9 % Sodium Chloride 10 ML IV ONE (11:57)
[2018-06-19] MEDS ORDERED: *HR* Dextrose 50 % in Water (Syg) 50 ML SYRINGE IVP ONE (11:57)
[2018-06-19] MEDS ORDERED: Ipratropium/Albuterol Neb 3 ML IH ONE (11:58)
[2018-06-19] MEDS ORDERED: Acetaminophen 325 MG TABLET PO PRN (12:02)
[2018-06-19] MEDS ORDERED: Naloxone 0.4 MG/ML INJ IVP PRN (12:02)
[2018-06-19] MEDS ORDERED: Fluticasone Propionate Nasal 50 MCG/SPRAY BOTTLE NS PRN (12:06)
[2018-06-19] MEDS ORDERED: 0.9 % Sodium Chloride 500 ML IVC ONE (12:08)
--- NOTE | 2018-06-19 12:16 | Internal Med History&Physical ---
Date of Encounter: 06/19/18 Time of Encounter: 11:00 Internal Medicine - H&P: HPI Chief complaint: pus like secretion from nephrostomy tube change Admitted From: Home Plans for Post Hospital Care: Home History of present illness: Ms. Alcantar is a 77 year old female present to ER for nephrostomy tube change because of right-sided nephrostomy tube leak. Past medical history is significant for hypertension, cervical cancer S/P radiation therapy and chemotherapy causing urinary tract obstruction and end up with bilateral nephrostomy, CKD. Patient has several times UTI need hospitalization and IV antibiotics. Patient has been on bilateral nephrostomy tube and change the tube every 3 months. Patient has right side nephrostomy tube leak and came to emergency room for tube change. IR was counseled by ER and bilateral nephrostomy tube had been changed. Patient was found pus like secretion from right-sided kidney when tube was changed. Further history patient does have right-sided flank pain and mild nausea. Denies fever, chills, vomiting. Patient also has mild tachycardia. Denies shortness of breath or chest pain. Patient was started IV antibiotic. Blood culture and urine culture sent by ER. Past Med Surg Social Fam HX - Past Medical History Medical history: cancer, hyperlipidemia, hypertension, kidney stones, renal disease, other Additional medical history: hx of cervical cancer with radiation, nephrostomy tube replacement 01/14/18 Psychiatric history: no psych history - Past Surgical History Surgical History: other Additional surgical history: bi-lat nephrostomy tube - Social History Smoking Status: Never smoker Smokeless Tobacco Status: No Alcohol use: none Drug use: none - Family History Mother Hx Family Cancer: Yes Internal Medicine - H&P: Meds Amlodipine Besylate 10 mg PO DAILY 01/14/18 [History] Fluticasone Propionate Nasal [Flonase] 2 spr NS DAILY PRN 01/14/18 [History] Lisinopril [Zestril] 20 mg PO DAILY 01/14/18 [History] Loratadine [Allergy Relief] 10 mg PO DAILY 01/14/18 [History] Cyanocobalamin (B-12) [Vitamin B12] 1,000 mcg PO DAILY 06/19/18 [History] Iron Polysaccharide Complex [Pro Fe] 180 mg PO DAILY 06/19/18 [History] Allergy/AdvReac Type Severity Reaction Status Date / Time No Known Allergies Allergy Verified 06/19/18 07:20 All Systems PM: A 10-system review of systems was performed and is negative for pertinent findings except as documented above in the HPI. - Constitutional Vitals: Temp Pulse Resp BP Pulse Ox 98.4 F 95 18 166/71 100 06/19/18 05:55 06/19/18 12:05 06/19/18 12:05 06/19/18 08:00 06/19/18 12:05 General appearance: Present: A&O X 3, no acute distress, answers questions appropriately Exam: Pt is AAO x 3, in NAD HEENT: NC/AT, PERRL Neck: Supple, no JVD, no LAD Lungs: CTA b/l Heart: S1S2, RRR Abd: Soft, nontender, BS present, CVAT positive on the right side, bilateral nephrostomy tube in place Ext: ROM wnl, no pedal edema Neuro: No focal deficit Internal Med - H&P Results - Labs CBC & Chem 7: 06/19/18 10:50 06/19/18 10:50 Labs: Short CBC 06/19/18 Range/Units 10:50 WBC 8.3 (4.3-11.1) K/mcL Hgb 8.6 L (11.5-15.4) g/dL Hct 27.5 L (35.3-44.9) % Plt Count 223 (140-400) K/mcL Neutrophils # 7.0 (1.6-8.9) K/mcL BMP 06/19/18 10:50 Sodium 136 Potassium 6.2 H Chloride 114 H Carbon Dioxide 14 L BUN 62 H Creatinine 4.39 H Glucose 114 H Calcium 9.4 Liver Function 06/19/18 Range/Units 10:50 Total Bilirubin 0.3 (0.3-1.0) mg/dL AST 10 L (13-39) Units/L ALT 10 (7-52) Units/L Alkaline Phosphatase 83 (34-104) Units/L Albumin 3.7 (3.5-5.7) g/dL Urine 06/19/18 Range/Units 11:22 Urine Color Red A (Yellow) Urine Clarity Turbid A (Clear) Urine pH 7.0 (5.0-8.0) pH Units Ur Specific [place] 1.012 (1.010-1.025) Urine Protein >=1000 H (Neg-Trace) mg/dL Urine Glucose (UA) Normal (Normal) mg/dL - Impressions ITS Impressions Nephrostomy Tube Change 06/19/18 00:00 IMPRESSION: Successful exchange of bilateral percutaneous nephrostomy tubes D/ / Joey Rajan MD / Joey Rajan MD Interpreting Provider: Joey Rajan MD - Assessment and plan (1) Acute kidney injury Current Visit: No Status: Acute Assessment and plan: Patient has a mild elevated creatinine from baseline. - Place patient on IV fluid, strict I and O - Hold home medication lisinopril - Avoid nephrotoxic medications - We will consult counter former (2) DVT prophylaxis Current Visit: No Status: Acute Assessment and plan: EPCDs, no anticoagulation because of anemia (3) Hyperkalemia Current Visit: No Status: Acute Assessment and plan: Patient was found potassium level 6.2, history of CKD - Patient was placed on calcium gluconate, D50 plus insulin, IV bicarbonate, DuoNeb, and Kayexalate - Nephrology was counseled - Repeat the potassium in 6 hours - Continue IV fluid (4) Pyelonephritis Current Visit: No Status: Acute Assessment and plan: Patient's old chart reviewed and the previous culture result and the sensitivity was referred. Place patient on IV cefepime previous result. - Follow up blood and urine culture result - Patient not meet sepsis criteria but does have tachycardia, lactate 1.3, will give gentle hydration. (5) Anemia Current Visit: No Status: Chronic Assessment and plan: Chronic, hemoglobin is about baseline. No signs of active bleeding. continue outpatient follow-up Qualifiers: Anemia type: unspecified type Qualified Code(s): D64.9 - Anemia, unspecified (6) CKD (chronic kidney disease) stage 4, GFR 15-29 ml/min Current Visit: No Status: Chronic Assessment and plan: CKD with baseline creatinine level 3-4. Closely monitor renal function. Nephrology was consulted. - Time Spent With Patient Total time spent is greater than 50% in coordination of care (as documented) at patient's floor/unit and/or counseling patient: 40 minutes Greater than 35 minutes
[2018-06-19] MEDS: Cefepime HCl 1,000 MG in Water for inj. (sterile) 20 ML 10 ML IVP SCH (13:20)
[2018-06-19] MEDS: 0.9 % Sodium Chloride 1,000 ML IVC SCH (13:21)
[2018-06-19] MEDS ORDERED: Ondansetron 4 MG/2 ML VIAL IVP PRN (13:36)
--- NOTE | 2018-06-19 14:43 | Nephrology Consult Note ---
Addendum entered and electronically signed by Stephan Garsia MD 06/23/18 22:54: I examined this patient and discussed the medical decision-making with KHURRAM Almonte 06/19/2018. I agree with the documented findings, disposition and treatment plan as described except to the extent set forth below. Original Note: Date of Encounter: 06/19/18 Time of Encounter: 14:36 Assessment and Plan (1) Acute kidney injury superimposed on CKD Current Visit: Yes Status: Acute Pt does not have a current economic developer. Will establish with [facility]. Continue IVF. Avoid nephrotoxins. Strict I/O Renal dose. Baseline appears to be CKD 5. (2) Nephrostomy tube failure with subsequent urine leak Current Visit: Yes Status: Acute Successful exchange of chronic nephrostomy tubes by IR. (3) Hyperkalemia Current Visit: No Status: Acute K is 6.2. 45 grams of Kayexalate given, will monitor. Repeat K in 6 hours after BM. Continue IVF. (4) Anemia Current Visit: No Status: Chronic Goal Hgb is 10-11. Hgb is 8.3 today. Iron profile ordered in am. Qualifiers: Anemia type: unspecified type Qualified Code(s): D64.9 - Anemia, unspecified History of Present Illness - Reason for Consult Consult date: 06/19/18 end stage renal disease Requesting physician: Leah Alejandro - Chief Complaint nephrostomy tube malfunction - History of Present Illness Ms. Alcantar is a 77 year old female who presented to the ED from home for drainage around nephrostomy tubes. PMH: hypertension, cervical cancer S/P radiation therapy and chemotherapy causing urinary tract obstruction and end up with bilateral nephrostomy, CKD 5 at baseline. She does see Dr. Freeman yearly for nephrostomy tube maintenance. She denies fever,chills, nausea, vomiting, or diarrhea. Denies hematuria. She has not been to a economic developer in "years". She would like to establish with the group as she has moved closer to this area. Her former economic developer was in [place]. She denies chronic Nsaid use or any other nephrotoxic agents. KLAUS and CKD workup ordered. Retroperitoneal US ordered. Serum and urine studies ordered. She lives at home with daughter. Denies tobacco, etoh, or illicit drug use. Past Med Surg Social Fam HX - Past Medical History Medical history: cancer, hyperlipidemia, hypertension, kidney stones, renal disease, other Additional medical history: Cervical Cancer: Chemo and radiation Psychiatric history: no psych history - Past Surgical History Surgical History: other Additional surgical history: bi-lat nephrostomy tube - Social History Smoking Status: Never smoker Smokeless Tobacco Status: No Alcohol use: none Drug use: none - Family History Mother Hx Family Cancer: Yes Medications and Allergies Amlodipine Besylate 10 mg PO DAILY 01/14/18 [History] Fluticasone Propionate Nasal [Flonase] 2 spr NS DAILY PRN 01/14/18 [History] Lisinopril [Zestril] 20 mg PO DAILY 01/14/18 [History] Loratadine [Allergy Relief] 10 mg PO DAILY 01/14/18 [History] Cyanocobalamin (B-12) [Vitamin B12] 1,000 mcg PO DAILY 06/19/18 [History] Iron Polysaccharide Complex [Pro Fe] 180 mg PO DAILY 06/19/18 [History] Allergy/AdvReac Type Severity Reaction Status Date / Time No Known Allergies Allergy Verified 06/19/18 07:20 Review of Systems All Systems review (narrative): The remainder of the systems are negative. Constitutional: fatigue, no chills, no fever(s) Cardiovascular: no chest pain, no edema, no orthopnea, no palpitations Respiratory: no cough Gastrointestinal: no change in bowel habits, no diarrhea, no nausea, no vomiting Genitourinary Female: no hematuria Exam - Vital Signs Vital signs: Initial Vital Signs Temp Pulse Resp BP Pulse Ox 98.4 F 116 20 164/91 100 06/19/18 05:55 06/19/18 05:55 06/19/18 05:55 06/19/18 05:55 06/19/18 05:55 Vital Signs - Last 8 Hours Pulse Resp BP Pulse Ox 06/19/18 12:05 95 18 100 06/19/18 08:00 96 20 166/71 99 06/19/18 07:21 107 20 166/68 100 Intake and Output 06/18/18 06/19/18 06/19/18 23:59 07:59 15:59 Output Total Balance - -10 Output: Emesis Other: Weight 56.359 kg Blood Glucose* 113 Patient Weight 06/19/18 23:59 Weight 56.359 kg - General Appearance General appearance: well-developed, well-nourished EENT: ATNC, hearing intact, vision intact Neck: supple Respiratory: clear Cardiology: no edema, normal S1, normal S2 Gastrointestinal: normoactive bowel sounds, tenderness, no guarding Integumentary: no rash, warm and dry Additional Comments: Bilat nephrostomy tubes noted. Neurologic: alert and oriented x3 Psychiatric: mood/affect appropriate Results - Lab Results 06/19/18 10:50 06/19/18 10:50 Most recent lab results Calcium 9.4 mg/dL (8.6-10.3) 06/19/18 10:50 Consult Discharge Plan - Plan Referrals: Tamara Granda MD [Primary Care Provider] -
[2018-06-19 15:07] LABS: Uric Acid 6.4 mg/dL (2.3-7.6)
[2018-06-19 15:18] LABS: Complement C3 146 mg/dL (87-200)
[2018-06-19 16:45] LABS: Protein/Creatinine Ratio,Urine 12.75 mg/mg (0.00-0.20); Sodium, Urine 105.5 mEq/L
[2018-06-20] MEDS: 0.9 % Sodium Chloride 1,000 ML IVC SCH (01:29)
[2018-06-20 03:58] LABS: Basophils % 0.2 %; Immature Granulocytes % 0.5 % (0-4); Lymphocytes # 0.8 K/mcL (0.6-4.6); Lymphocytes % 14.7 %; Mean Corpuscular HGB Conc 31.9 g/dL (31.6-35.5); Mean Corpuscular Hemoglobin 31.3 pg (28.0-33.3); Mean Corpuscular Volume 98.1 fL (83.0-100.0); Mean Platelet Volume 9.2 fL (9.4-12.4); Monocytes # 0.6 K/mcL (0.0-1.3); Neutrophils # 4.1 K/mcL (1.6-8.9); Platelet Count 178 K/mcL (140-400); Red Blood Count 2.14 M/mcL (3.82-4.97); Red Cell Distribution Width 13.4 % (11.5-14.5); Segmented Neutrophils % 74.6 %
[2018-06-20 04:04] LABS: Hemoglobin 6.7 g/dL (11.5-15.4)
[2018-06-20 04:17] LABS: % Iron Saturation 14 % (15-50); Iron 27 mcg/dL (50-170); Transferrin 138 mg/dL (203-362)
[2018-06-20 04:19] LABS: Magnesium 1.6 mg/dL (1.6-2.6); Potassium 4.3 mEq/L (3.5-5.1)
[2018-06-20 04:43] LABS: Folate 21.4 ng/mL (3.0-16.0)
[2018-06-20] MEDS ORDERED: (Iron Polysaccharide Complex [Pro Fe] 180 MG) PO SCH (09:00)
[2018-06-20] MEDS: amLODIPine 5 MG TABLET PO SCH (09:49)
[2018-06-20] MEDS: Cyanocobalamin (B-12) 1,000 MCG TABLET PO SCH (09:49)
[2018-06-20] MEDS: Loratadine 10 MG TABLET PO SCH (09:49)
--- NOTE | 2018-06-20 13:25 | Nephrology Progress Note ---
Addendum entered and electronically signed by Stephan Garsia MD 06/20/18 22:18: I examined this patient and discussed the medical decision-making with KHURRAM Almonte. I agree with the documented findings, disposition and treatment plan as described except to the extent set forth below. Original Note: Date of Encounter: 06/20/18 Time of Encounter: 13:23 - Assessment and Plan (1) Acute kidney injury superimposed on CKD Current Visit: Yes Status: Acute Scr imprioved at 3.75 and GFR 12, near baseline. 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 Will establish with [facility]. Continue IVF. Avoid nephrotoxins. Strict I/O Renal dose. Baseline appears to be CKD 5. (2) Nephrostomy tube failure with subsequent urine leak Current Visit: Yes Status: Acute Successful exchange of chronic nephrostomy tubes by IR. Left sided hydronephrosis noted on ultrasound 06/20/18, suggest reaching out to urology to see if this is chronic or needs inpatient intervention. (3) Hyperkalemia Current Visit: No Status: Acute Improved K is 4.3 today, stable. (4) Anemia Current Visit: No Status: Chronic Goal Hgb is 10-11. Hgb is 6.7 today. 1 unit PRBC ordered for today. Qualifiers: Anemia type: unspecified type Qualified Code(s): D64.9 - Anemia, unspecified Subjective Principal diagnosis: nephrostomy tube malfunction Interval history: Pt seen and examined, feels much better today.Denies shortness of breath or chest pain. Denies nausea, vomiting, diarrhea. Objective - Vital Signs Vital signs: Vital Signs Temp Pulse Resp BP Pulse Ox 06/20/18 11:26 98.3 F 85 16 150/78 98 06/20/18 06:52 98.5 F 83 14 124/73 98 06/20/18 04:17 98.9 F 85 14 128/77 98 06/19/18 23:34 99.4 F 92 14 117/66 97 06/19/18 18:34 98.0 F 107 14 126/71 94 06/19/18 14:49 100.6 F H 103 18 134/66 97 Intake and Output 06/19/18 06/20/18 06/20/18 23:59 07:59 15:59 Intake Total 1000 / 1000 Output Total 1150 / 1150 0 / 0 600 / 600 Balance -150 / -150 0 / 0 -600 / -600 Intake: IV Fluids 1000 / 1000 0.9 % Sodium Chloride 1,000 ML 1000 / 1000 @ 100 mls/hr IVC .Q10H [facility] Rx#: [id number] Oral 0 / 0 Output: Left Nephrostomy 550 / 550 0 / 0 350 / 350 Right Nephrostomy 600 / 600 0 / 0 250 / 250 Other: Meal Dinner Stool Size Copious Moderate Stool Consistency loose loose Stool Characteristics Mccune Seedy Stool Color Brown Brown # Bowel Movements 1 Weight 54 kg Patient Weight 06/20/18 23:59 Weight 54 kg - General Appearance General appearance: Present: well-developed, well-nourished EENT: Present: ATNC, hearing intact, vision intact Neck: Present: supple Respiratory: Present: clear Cardiology: Present: no edema, normal S1, normal S2 Gastrointestinal: Present: normoactive bowel sounds, no tenderness, no guarding Integumentary: Present: no rash, warm and dry Additional Comments: Bilat nephrostomy tubes intact. Neurologic: Present: alert and oriented x3 Psychiatric: Present: mood/affect appropriate, cooperative - Lab 06/20/18 03:26 06/20/18 03:26 Most recent lab results Calcium 8.0 mg/dL (8.6-10.3) L 06/20/18 03:26 Magnesium 1.6 mg/dL (1.6-2.6) 06/20/18 03:26 Urine Creatinine 32 mg/dL 06/19/18 15:46 Urine Sodium 105.5 mEq/L 06/19/18 15:46 Urine Total Protein 408 mg/dL (1-14) H 06/19/18 15:46 Consult Discharge Plan - Plan Referrals: Tamara Granda MD [Primary Care Provider] -
[2018-06-20] MEDS: Cefepime HCl 1,000 MG in Water for inj. (sterile) 20 ML 10 ML IVP SCH (13:56)
[2018-06-20 14:17] LABS: Hepatitis A Antibody IgM Nonreactive (Nonreactive); Hepatitis B Core IgM Nonreactive (Nonreactive); Hepatitis B Surface Antigen Nonreactive (Nonreactive); Hepatitis C Virus Antibody Nonreactive (Nonreactive)
[2018-06-20] MEDS ORDERED: 0.9 % Sodium Chloride 250 ML ONE (15:10)
--- NOTE | 2018-06-20 22:05 | Internal Med Progress Note ---
Hospitalist Progress Note - Encounter Date of Encounter: 06/20/18 Time of Encounter: 19:00 - Subjective Interval History: SUBJECTIVE: The patient feels weak. Otherwise, she is not voicing any other symptoms. We admitted her after somebody noticed very infected urine coming around her right nephrostomy tube. The tube has been changed by interventional radiology. The patient does have bilateral nephrostomy tubestarted several years ago (after treatments for cervical cancer; diagnosed about 12 years ago). The patient has not noticed any fever or chills recently. She is stage IV/V of chronic kidney disease. She does make fair amounts of urine. OBJECTIVE: Skin: Free of rash and discoloration. ENMT: Oral/pharyngeal mucosa is normal in appearance. Eyes: Sclera is white. There is no discharge from eyes. Respiratory: Normal breath sounds; no crackles or wheezes. CV: Heart is regular; no gallop or murmur. GI: Abdomen is soft and not tender. There is no palpable mass or visceromegaly. : Nephrostomy tubes are in typical positions. They are draining normal color urine. Neuro: There is no focal deficits. ADDITIONAL DATA: Hemoglobin is 6.7; 8.6 at admission. WBCs 5.5 thousand with normal platelet count. Creatinine is at 3.75; 4.39 at admission. Her GFR is only 12. She has normal electrolytes. ASSESSMENT AND PLAN: Acute pyelonephritis. She is on IV cefepime. Urine culture is pending. Acute kidney injury/CKD stage IV. Nephrology is consulted. The patient is benefiting from IV fluids. Severe anemia. She will be transfused with 1 unit of packed red blood cells. There is no evidence for GI bleeding at this time. To check her CBC in the morning. Hyperkalemia. Resolved. It was caused by a KLAUS. Hypertensive renal disease with renal failure. Blood pressure is under control. I will keep her lisinopril on hold. - Exam Vitals: Temp Pulse Resp BP Pulse Ox 98.5 F 95 15 129/67 99 06/20/18 19:01 06/20/18 19:01 06/20/18 19:01 06/20/18 19:01 06/20/18 19:01 Exam: xx - Assessment and Plan (1) Pyelonephritis Current Visit: No Status: Acute (2) Acute kidney injury Current Visit: No Status: Acute (3) CKD (chronic kidney disease) stage 4, GFR 15-29 ml/min Current Visit: No Status: Chronic (4) Anemia Current Visit: No Status: Chronic (5) Hyperkalemia Current Visit: No Status: Resolved (6) Hypertensive renal disease with renal failure Current Visit: Yes Status: Chronic - Time Spent with Patient Total time spent is greater than 50% in coordination of care (as documented) at patient's floor/unit and/or counseling patient: 25 - 35 minutes Plan of Care Discussed with: patient Internal Medicine: Result - Labs CBC & Chem 7: 06/20/18 03:26 06/20/18 03:26 Labs: Short CBC 06/20/18 Range/Units 03:26 WBC 5.5 (4.3-11.1) K/mcL Hgb 6.7 L D (11.5-15.4) g/dL Hct 21.0 L (35.3-44.9) % Plt Count 178 (140-400) K/mcL Neutrophils # 4.1 (1.6-8.9) K/mcL BMP 06/20/18 03:26 Sodium 145 D Potassium 4.3 Chloride 117 H Carbon Dioxide 19 L BUN 55 H Creatinine 3.75 H Glucose 102 Calcium 8.0 L - ABG Interpretation ABG results: PT/INR, D-dimer PT 13.5 Seconds (9.4-12.1) H 06/19/18 07:50 - Impressions Impressions Retroperitoneum Ultrasound 06/20/18 09:00 IMPRESSION: 1. Limited examination due to poor visualization of the kidneys. 2. Bilateral Schaefer me tubes. 3. Bilateral atrophy, right greater than left. 4. There is suggestion of mild to moderate left-sided hydronephrosis. D/ / Galo Perez MD / Galo Perez MD Interpreting Provider: Galo Perez MD Consult Discharge Plan - Plan Referrals: Tamara Granda MD [Primary Care Provider] - (4) Anemia Qualifiers: Anemia type: due to chronic kidney disease
[2018-06-21 00:59] LABS: Acinetobacter baumannii by PCR Not Detected (Not Detect); Enterobacter cloacae Cmplx PCR Not Detected (Not Detect); Enterobacteriaceae by PCR DETECTED (Not Detect); Enterococcus by PCR Not Detected (Not Detect); Escherichia coli by PCR Not Detected (Not Detect); Klebsiella oxytoca by PCR Not Detected (Not Detect); Staphylococcus aureus by PCR Not Detected (Not Detect); Staphylococcus by PCR Not Detected (Not Detect); Streptococcus agalactiae(B)PCR Not Detected (Not Detect); Streptococcus by PCR Not Detected (Not Detect); Streptococcus pneumoniae PCR Not Detected (Not Detect); Streptococcus pyogenes (A) PCR Not Detected (Not Detect); blaKPC Carbapenem-Resist Gene Not Detected (Not Detect)
[2018-06-21 01:00] LABS: Candida albicans by PCR Not Detected (Not Detect); Candida glabrata by PCR Not Detected (Not Detect); Candida krusei by PCR Not Detected (Not Detect); Candida parapsilosis by PCR Not Detected (Not Detect); Candida tropicalis by PCR Not Detected (Not Detect); Klebsiella pneumoniae by PCR DETECTED (Not Detect); Proteus by PCR Not Detected (Not Detect); Pseudomonas aeruginosa by PCR Not Detected (Not Detect); Serratia marcescens by PCR Not Detected (Not Detect)
[2018-06-21 03:37] LABS: Basophils % 0.2 %; Eosinophils # 0.1 K/mcL (0.0-0.6); Eosinophils % 2.3 %; Hematocrit 25.9 % (35.3-44.9); Immature Granulocytes % 0.9 % (0-4); Lymphocytes % 17.5 %; Mean Corpuscular Hemoglobin 30.2 pg (28.0-33.3); Mean Corpuscular Volume 94.2 fL (83.0-100.0); Monocytes # 0.6 K/mcL (0.0-1.3); Monocytes % 10.3 %; Platelet Count 185 K/mcL (140-400); Red Blood Count 2.75 M/mcL (3.82-4.97); Red Cell Distribution Width 16.2 % (11.5-14.5); Segmented Neutrophils % 68.8 %
[2018-06-21 03:38] LABS: Hemoglobin 8.3 g/dL (11.5-15.4)
[2018-06-21 03:57] LABS: Calcium 7.8 mg/dL (8.6-10.3); Potassium 3.9 mEq/L (3.5-5.1)
[2018-06-21] MEDS: Loratadine 10 MG TABLET PO SCH (10:14)
[2018-06-21] MEDS: amLODIPine 5 MG TABLET PO SCH (10:14)
[2018-06-21] MEDS: Cyanocobalamin (B-12) 1,000 MCG TABLET PO SCH (10:14)
[2018-06-21] MEDS: Cefepime HCl 1,000 MG in Water for inj. (sterile) 20 ML 10 ML IVP SCH (13:38)
--- NOTE | 2018-06-21 19:11 | Nephrology Progress Note ---
Date of Encounter: 06/21/18 Time of Encounter: 11:02 - Assessment and Plan (1) Acute kidney injury superimposed on CKD Current Visit: Yes Status: Acute Scr imprioved at 3.54 near baseline. Pt does not have a current ultrasound technol. Will establish with [facility]. Continue IVF. Avoid nephrotoxins. Strict I/O Renal dose. Baseline appears to be CKD 5. (2) Anemia Current Visit: No Status: Chronic Goal Hgb is 10-11. Hgb is 6.7 today. 1 unit PRBC ordered 06/20/18. Qualifiers: Anemia type: due to chronic kidney disease Qualified Code(s): N18.3 - Chronic kidney disease, stage 3 (moderate); D63.1 - Anemia in chronic kidney disease (3) Nephrostomy tube failure with subsequent urine leak Current Visit: Yes Status: Acute Successful exchange of chronic nephrostomy tubes by IR. Left sided hydronephrosis noted on ultrasound 06/20/18, suggest reaching out to urology to see if this is chronic or needs inpatient intervention. Subjective Principal diagnosis: nephrostomy tube malfunction Interval history: Patient seen no new complaint. Objective - Vital Signs Vital signs: Vital Signs Temp Pulse Resp BP Pulse Ox 06/21/18 15:00 98.2 F 89 15 146/82 98 06/21/18 11:37 98.2 F 77 16 143/71 99 06/21/18 06:58 98.4 F 77 16 119/67 97 06/21/18 03:10 98.5 F 71 16 144/71 97 06/20/18 23:11 99.1 F 84 16 128/70 97 Intake and Output 06/21/18 06/21/18 06/21/18 07:59 15:59 23:59 Intake Total 0 / 0 250 / 250 Output Total 0 / 0 525 / 525 Balance 0 / 0 250 / 250 -525 / -525 Intake: IV Fluids Maxipime 1,000 MG In Water for inj. (sterile) 10 ML @ 300 mls/ hr IVP Q24H [facility] Rx#:[id number] Oral 0 / 0 240 / 240 Output: Urine 0 / 0 Left Nephrostomy 250 / 250 Right Nephrostomy 275 / 275 Other: Meal Breakfast Percent of Meal Consumed 100% Weight 55 kg Patient Weight 12/07/18 23:59 Weight 55 kg - General Appearance General appearance: Present: well-developed, well-nourished EENT: Present: ATNC Cardiology: Present: regular rate - Lab 06/21/18 03:04 06/21/18 03:04 Most recent lab results Calcium 7.8 mg/dL (8.6-10.3) L 06/21/18 03:04 Magnesium 1.6 mg/dL (1.6-2.6) 06/20/18 03:26 Urine Creatinine 32 mg/dL 06/19/18 15:46 Urine Sodium 105.5 mEq/L 06/19/18 15:46 Urine Total Protein 408 mg/dL (1-14) H 06/19/18 15:46 Consult Discharge Plan - Plan Referrals: Tamara Granda MD [Primary Care Provider] -
--- NOTE | 2018-06-21 22:56 | Internal Med Progress Note ---
Hospitalist Progress Note - Encounter Date of Encounter: 06/21/18 Time of Encounter: 19:00 - Subjective Interval History: SUBJECTIVE: He feels weak. Otherwise, he is not voicing any other symptoms. Her replaced right sided nephrostomy tube is draining normal color urine. He does not have any pain in the flanks. Denies nausea and vomiting. He has good appetite. The patient has not noticed any fever or chills recently. She is stage IV/V of chronic kidney disease. She does make fair amounts of urine. OBJECTIVE: Skin: Free of rash and discoloration. ENMT: Oral/pharyngeal mucosa is normal in appearance. Eyes: Sclera is white. There is no discharge from eyes. Respiratory: Normal breath sounds; no crackles or wheezes. CV: Heart is regular; no gallop or murmur. GI: Abdomen is soft and not tender. There is no palpable mass or visceromegaly. : Nephrostomy tubes are in typical positions. They are draining normal color urine. Neuro: There is no focal deficits. ADDITIONAL DATA: Hemoglobin is 8.3 (after transfusion of 1 unit of packed red blood cells). He has normal WBC/platelet count. Creatinine is 3.54 with a GFR of 14. He has normal electrolytes. ASSESSMENT AND PLAN: Acute pyelonephritis. She is on IV cefepime. Urine culture is pending. 1 of 2 blood cultures is growing gram negative rods. Acute kidney injury/CKD stage IV/V. Nephrology is consulted. IV fluids have been stopped. Severe anemia. Secondary to advanced chronic renal failure. Transfused with 1 unit of packed red blood cells. She will get iron and Aranesp or Procritto be decided by nephrology. Hyperkalemia. Resolved. It was caused by a KLAUS. Hypertensive renal disease with renal failure. Blood pressure is under control. I will keep her lisinopril on hold. Disposition: He has a good chance to be discharged tomorrow. - Exam Vitals: Temp Pulse Resp BP Pulse Ox 99.2 F 81 11 136/71 98 06/21/18 19:22 06/21/18 19:22 06/21/18 19:22 06/21/18 19:22 06/21/18 19:22 Exam: xx - Assessment and Plan (1) Pyelonephritis Current Visit: No Status: Acute (2) Acute kidney injury Current Visit: No Status: Acute (3) CKD (chronic kidney disease) stage 4, GFR 15-29 ml/min Current Visit: No Status: Chronic (4) Anemia Current Visit: No Status: Chronic (5) Hyperkalemia Current Visit: No Status: Resolved (6) Hypertensive renal disease with renal failure Current Visit: Yes Status: Chronic - Time Spent with Patient Total time spent is greater than 50% in coordination of care (as documented) at patient's floor/unit and/or counseling patient: 25 - 35 minutes Plan of Care Discussed with: patient Internal Medicine: Result - Labs CBC & Chem 7: 06/21/18 03:04 06/21/18 03:04 Labs: Short CBC 06/21/18 Range/Units 03:04 WBC 5.7 (4.3-11.1) K/mcL Hgb 8.3 L D (11.5-15.4) g/dL Hct 25.9 L (35.3-44.9) % Plt Count 185 (140-400) K/mcL Neutrophils # 4.0 (1.6-8.9) K/mcL BMP 06/21/18 03:04 Sodium 143 Potassium 3.9 Chloride 114 H Carbon Dioxide 18 L BUN 49 H Creatinine 3.54 H Glucose 95 Calcium 7.8 L - ABG Interpretation ABG results: PT/INR, D-dimer PT 13.5 Seconds (9.4-12.1) H 06/19/18 07:50 Consult Discharge Plan - Plan Referrals: Tamara Granda MD [Primary Care Provider] - (4) Anemia Qualifiers: Anemia type: due to chronic kidney disease Qualified Code(s): N18.3 - Chronic kidney disease, stage 3 (moderate); D63.1 - Anemia in chronic kidney disease
[2018-06-22 06:35] LABS: Basophils % 0.4 %; Eosinophils # 0.1 K/mcL (0.0-0.6); Eosinophils % 2.5 %; Hematocrit 26.4 % (35.3-44.9); Hemoglobin 8.7 g/dL (11.5-15.4); Immature Granulocytes % 0.9 % (0-4); Lymphocytes # 1.1 K/mcL (0.6-4.6); Lymphocytes % 20.8 %; Mean Corpuscular Hemoglobin 30.4 pg (28.0-33.3); Mean Corpuscular Volume 92.3 fL (83.0-100.0); Mean Platelet Volume 8.9 fL (9.4-12.4); Monocytes # 0.5 K/mcL (0.0-1.3); Monocytes % 8.7 %; Neutrophils # 3.5 K/mcL (1.6-8.9); Platelet Count 194 K/mcL (140-400); Red Blood Count 2.86 M/mcL (3.82-4.97); Red Cell Distribution Width 15.3 % (11.5-14.5); Segmented Neutrophils % 66.7 %
[2018-06-22 06:54] LABS: Calcium 8.4 mg/dL (8.6-10.3); Potassium 4.2 mEq/L (3.5-5.1)
[2018-06-22 07:58] VITALS: BP 150/76
[2018-06-22] MEDS: Cyanocobalamin (B-12) 1,000 MCG TABLET PO SCH (09:21)
[2018-06-22] MEDS: amLODIPine 5 MG TABLET PO SCH (09:21)
--- NOTE | 2018-06-22 09:53 | Discharge Summary ---
Orders not resulted at time of discharge: Pending orders 06/19/18 10:50 Culture,Blood [BC] Stat 06/19/18 14:33 DALTON IgG DENIS rflx IFA Routine MPO/PR3 (ANCA) Antibodies Routine 06/19/18 15:46 Immunofixation,Urine (BJP) Stat 06/23/18 04:00 BMP [Basic Metabolic Panel] AM 0400 CBC [Complete Blood Count] [HEME] AM 0400 Date of Encounter: 06/22/18 Time of Encounter: 09:46 - Discharge Diagnosis (1) Pyelonephritis Priority: Primary Status: Acute (2) Acute kidney injury Priority: Primary Status: Acute (3) CKD (chronic kidney disease) stage 4, GFR 15-29 ml/min Priority: Secondary Status: Chronic (4) Anemia Priority: Secondary Status: Chronic Qualifiers: Anemia type: due to chronic kidney disease Qualified Code(s): N18.3 - Chronic kidney disease, stage 3 (moderate); D63.1 - Anemia in chronic kidney disease (5) Hypertensive renal disease with renal failure Priority: Secondary Status: Chronic Hospital course: Ms. Alcantar is a 77 year old female Discharge discussed with: patient - Time Spent with Patient Total time spent providing and/or coordinating discharge services: Greater than 30 minutes (40 minutes..) - Discharge Medications Prescriptions: Cefdinir [Omnicef] 300 mg PO DAILY 10 Days #10 capsule Iron Polysaccharide Complex [Pro Fe] 180 mg PO DAILY #30 capsule Home Medications: Amlodipine Besylate 10 mg PO DAILY 01/14/18 [History] Fluticasone Propionate Nasal [Flonase] 2 spr NS DAILY PRN 01/14/18 [History] Lisinopril [Zestril] 20 mg PO DAILY 01/14/18 [History] Loratadine [Allergy Relief] 10 mg PO DAILY 01/14/18 [History] Cyanocobalamin (B-12) [Vitamin B12] 1,000 mcg PO DAILY 06/19/18 [History] Cefdinir [Omnicef] 300 mg PO DAILY 10 Days #10 capsule 06/22/18 [Rx] Iron Polysaccharide Complex [Pro Fe] 180 mg PO DAILY #30 capsule 06/22/18 [Rx] Allergies/Adverse Reactions: Allergy/AdvReac Type Severity Reaction Status Date / Time No Known Allergies Allergy Verified 06/19/18 07:20 Date of admission: 06/21/18 14:54 Primary care physician: Tamara Granda Consults: 06/19/18 06:21 Consult to Interventional Radiology [CONS] Stat Consulting Provider: Radiology Interventional Cols Reason for Consult: replace neph tube Call Completed: No 06/19/18 12:17 Consult to Nephrology [CONS] Routine Consulting Provider: Kidney Jacqui/KENDELL/ESTER/DENISA Reason for Consult: KLAUS on CKD, hyperkalemia Call Completed: Yes 06/20/18 10:00 Consult to Invasive Line Access Team [CONS] Routine Reason for Consult: Limited Access Line Type: EPIV Discharging clinician: Roland Hoang Anticipated date of discharge: 06/22/18 - Constitutional Vitals: Temp Pulse Resp BP Pulse Ox 98.5 F 78 15 150/76 98 06/22/18 07:52 06/22/18 07:52 06/22/18 07:52 06/22/18 07:52 06/22/18 07:52 General appearance: Present: A&O X 3, no acute distress, answers questions appropriately Exam: xx - Patient Status Disposition: Home, Self-Care Condition: Fair Functional capacity at discharge: independent ambulation - Discharge Instructions Follow Up With: Tamara Granda MD [Primary Care Provider] - Additional Instructions: FOLLOW-UP WITH NEPHROLOGY -- IN 1-2 WEEKS.. - Diet and Activity Activity: resume usual activities as tolerated Diet: regular diet - VTE Reasons for not Prescribing Prophylaxis: Treatment not Indicated - Low risk for VTE Deep Vein Thrombosis/Pulmonary Embolism Present on Admission: No
[2018-06-22 11:27] LABS: ANA IgG by ELISA DETECTED (None Detected); Myeloperoxidase Ab 0 AU/mL (0-19); Serine Protease-3 Antibody 0 AU/mL (0-19)
--- NOTE | 2018-06-22 12:28 | Nephrology Progress Note ---
Date of Encounter: 06/22/18 Time of Encounter: 12:27 - Assessment and Plan (1) Acute kidney injury superimposed on CKD Current Visit: Yes Status: Acute Scr imprioved at 3.21 near baseline. 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 Will establish with [facility] 6-10 weeks after discharge. Continue IVF. Avoid nephrotoxins. Strict I/O Renal dose. Baseline appears to be CKD 5. (2) Anemia Current Visit: No Status: Chronic Goal Hgb is 10-11. 1 unit PRBC ordered 06/20/18. Qualifiers: Anemia type: due to chronic kidney disease Qualified Code(s): N18.3 - Chronic kidney disease, stage 3 (moderate); D63.1 - Anemia in chronic kidney disease (3) Nephrostomy tube failure with subsequent urine leak Current Visit: Yes Status: Acute Successful exchange of chronic nephrostomy tubes by IR. Left sided hydronephrosis noted on ultrasound 06/20/18, suggest reaching out to urology to see if this is chronic or needs inpatient intervention. Subjective Principal diagnosis: nephrostomy tube malfunction Interval history: Patient seen no new complaint. Objective - Vital Signs Vital signs: Vital Signs Temp Pulse Resp BP Pulse Ox 06/22/18 07:52 98.5 F 78 15 150/76 98 06/22/18 04:48 98.6 F 77 11 128/71 98 06/21/18 19:22 99.2 F 81 11 136/71 98 06/21/18 15:00 98.2 F 89 15 146/82 98 Intake and Output 06/21/18 06/22/18 06/22/18 23:59 07:59 15:59 Intake Total 0 / 0 Output Total 525 / 525 600 / 600 Balance -525 / -525 -600 / -600 Intake: Oral 0 / 0 Output: Urine 600 / 600 Left Nephrostomy 250 / 250 Right Nephrostomy 275 / 275 Other: # Voids 0 Weight 55.1 kg Patient Weight 06/22/18 23:59 Weight 55.1 kg - General Appearance General appearance: Present: well-developed, well-nourished, chronically ill, frail Cardiology: Present: regular rate Integumentary: Present: warm and dry Neurologic: Present: alert and oriented x3 Psychiatric: Present: mood/affect appropriate - Lab 06/22/18 06:06 06/22/18 06:06 Most recent lab results Calcium 8.4 mg/dL (8.6-10.3) L 06/22/18 06:06 Magnesium 1.6 mg/dL (1.6-2.6) 06/20/18 03:26 Urine Creatinine 32 mg/dL 06/19/18 15:46 Urine Sodium 105.5 mEq/L 06/19/18 15:46 Urine Total Protein 408 mg/dL (1-14) H 06/19/18 15:46 - VTE Reasons for not Prescribing Prophylaxis: Treatment not Indicated - Low risk for VTE Deep Vein Thrombosis/Pulmonary Embolism Present on Admission: No Consult Discharge Plan - Plan Additional Instructions: FOLLOW-UP WITH NEPHROLOGY -- IN 1-2 WEEKS.. Referrals: Tamara Granda MD [Primary Care Provider] - (Web-requested, the office will call the patient to schedule a follow up appointment. ) Ac Zapata DO [Partnered Physician] - (Web-requested, the office will call the patient to schedule a follow up appointment. ) Prescriptions: Cefdinir [Omnicef] 300 mg PO DAILY 10 Days #10 capsule Iron Polysaccharide Complex [Pro Fe] 180 mg PO DAILY #30 capsule
[2018-06-22] MEDS: Cefepime HCl 1,000 MG in Water for inj. (sterile) 20 ML 10 ML IVP SCH (12:46)
[2018-06-22 21:55] LABS: Urine Collection Duration RANDOM hr; Urine Collection Volume RANDOM mL
[2018-06-22 22:41] LABS: ANA HEp-2 IgG IFA DETECTED (<1:80); Anti Nuclear Ab Pattern HOMOGENEOUS
[2018-06-23] MEDS ORDERED: Loratadine 10 MG TABLET PO SCH (09:00)
== END 2018-06-22 14:25 | disposition home or self-care (01) | DRG 699 ==
LOC: 3ANU 05:49 → EMEROOARM 05:49 → SUATTDRO 11:15 → 3ANU 12:48
PROVIDERS: ADMIT Internal Medicine; ATTEND Internal Medicine

== ENCOUNTER 2018-08-14 06:05 | Observation (INO) ==
[2018-08-14] MEDS ORDERED: cefTRIAXone 1,000 MG in Water for inj. (sterile) 20 ML 10 ML IVP ONE (06:36)
--- NOTE | 2018-08-14 06:36 | Emergency Department Note ---
Disposition Clinical Impression: Nephrostomy tube failure with subsequent urine leak Disposition: Still a Patient Condition: Good Forms: ED Satisfaction Letter, Work/School Release Time of Disposition: 06:55 General Adult HPI - General Chief complaint: ED General Medical Stated complaint: rt neph tube leaking Time Seen by Provider: 08/14/18 06:19 Source: patient, family Limitations: no limitations Nursing Notes Reviewed: Yes Vital Signs Reviewed: Yes - History of Present Illness HPI Narrative: Well-appearing female patient with a history of uterine cancer and bilateral nephrostomy tubes presenting to emergency department with leaking from her right insertion site of her nephrostomy tube. Patient has had palpitations like this before. The daughter is with the patient states that around 4:30 this morning the patient came into her room and stating that her nephrostomy tube was leaking again. She went to change the dressing and noticed that there was a purulent discharge from around the insertion site. She states this is not normal for this area. She was recently admitted to the hospital in June and had this changed. She goes to IR here to have this changed every 3 months. She is not due for another change until September. Patient denies any constitutional symptoms such as fever nausea vomiting diarrhea or abdominal pain. She does endorse some mild right back pain she states it is sore around the area. She also reports chilling occasionally. Pain Scale: 8 - Related Data Home Medications Medication Instructions Recorded Confirmed Amlodipine Besylate 10 mg PO DAILY 01/14/18 06/19/18 Fluticasone Propionate Nasal 2 spr NS DAILY PRN 01/14/18 06/19/18 [Flonase] Lisinopril [Zestril] 20 mg PO DAILY 01/14/18 06/19/18 Loratadine [Allergy Relief] 10 mg PO DAILY 01/14/18 06/19/18 Cyanocobalamin (B-12) [Vitamin B12] 1,000 mcg PO DAILY 06/19/18 06/19/18 Previous Rx's Medication Instructions Recorded Iron Polysaccharide Complex [Pro 180 mg PO DAILY #30 capsule 06/22/18 Fe] Allergies Allergy/AdvReac Type Severity Reaction Status Date / Time No Known Allergies Allergy Verified 06/19/18 07:20 All systems ED: reviewed and negative except as stated. Review of Systems: As Per HPI Constitutional: Reports: chills. Denies: fever Cardiovascular: Denies: chest pain Respiratory: Denies: cough, dyspnea Gastrointestinal: Denies: abdominal pain, nausea, vomiting, diarrhea Genitourinary: Reports: other (Purulent drainage from around the insertion of her right nephrostomy.) Past Medical History - Past Medical History Attestation: Yes The following information was validated with the patient. 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 - Social History Smoking Status: Never smoker Smokeless Tobacco Status: No Alcohol use: Reports: none Drug use: Reports: none Physical Exam - General Limitations: no limitations General appearance: alert, in no apparent distress - Head Head exam: atraumatic, normocephalic, normal inspection - Eye Eye exam: Present: normal appearance, PERRL, EOMI - ENT ENT exam: normal exam, normal oropharynx, mucous membranes moist - Neck Neck exam: Present: normal inspection, full ROM, trachea midline - Chest Chest inspection: Present: normal inspection, symmetric chest wall rise - Respiratory Respiratory exam: Present: normal lung sounds bilaterally. Absent: respiratory distress, accessory muscle use - Cardiovascular Cardiovascular exam: Present: regular rate, normal rhythm, normal heart sounds - Abdominal Exam Abdominal exam: Present: soft, Non-Tender. Absent: tenderness, distention, guarding, rebound, rigidity, organomegaly - Extremities Exam Extremities exam: Present: normal inspection, full ROM, normal capillary refill. Absent: tenderness, pedal edema, calf tenderness - Back Exam Back exam: Present: normal inspection, full ROM, tenderness (Patient reports that around the insertion site of the right nephrostomy it is sore whenever I palpate.) - Neurological Exam Neurological exam: Present: alert, oriented X3 - Psychiatric Psychiatric exam: Present: normal affect, normal mood - Skin Skin exam: Present: warm, dry, normal color, other (There is a purulent discharge around the insertion site of the right nephrostomy tube. It does not appear to be grossly erythematous.) Course Course Narrative: Daughter changed patient's dressing to the nephrostomy site prior to arriving to the ED. Whenever I take down the dressing there is a small amount of purulent discharge at the site of insertion of the and is processed me to. We will get a urinalysis place patient on antibiotics at this time. We will admit to the hospital for concern for infection at the site of the nephrostomy insertion. Patient will be signed out to take her Dr. Galdamez and Dr. Mcclendon. Vital Signs Temperature 98.0 F 08/14/18 06:09 Pulse Rate 99 08/14/18 06:09 Respiratory Rate 16 08/14/18 06:09 Blood Pressure 152/78 08/14/18 06:09 O2 Sat by Pulse Oximetry 100 08/14/18 06:09 Temperature 98.0 F 08/14/18 06:09 Pulse Rate 99 08/14/18 06:09 Respiratory Rate 16 08/14/18 06:09 Blood Pressure 152/78 08/14/18 06:09 O2 Sat by Pulse Oximetry 100 08/14/18 06:09 Oxygen Delivery Oxygen Delivery Room Air Medical Decision Making - Medical Records Medical records reviewed: Yes I reviewed the patient's medical records. S.[email or web address]. - S.[email or web address] Situation: Demographics Background: Presenting Complaint (Right nephrostomy tube leaking. Also purulent discharge to the insertion site of the right nephrostomy tube.), Relevant PMH, Meds, & Allergies (Uterine cancer. Bilateral nephrostomy tubes. CK D stage III. Had her nephrostomy tube changed in June. Not due again until September. Dr. Freeman is her urologist. Generally has her nephrostomy tubes changed by IR.) Assessment: Course and respsone to treatment (Ordered Rocephin as well as CBC BMP urinalysis and blood cultures.) S.B.A.R. Report Given to: Rudolph McclendonBDeliaAMacy Repor Time: 06:57
[2018-08-14] MEDS ORDERED: Isovue-370 500 ML BOTTLE IVP ONE (07:01)
--- NOTE | 2018-08-14 07:08 | Emergency Department Note ---
Disposition Clinical Impression: Nephrostomy tube failure with subsequent urine leak, Pyelonephritis Anemia Qualifiers: Anemia type: unspecified type Qualified Code(s): D64.9 - Anemia, unspecified Chronic kidney disease Qualifiers: Chronic kidney disease stage: unspecified stage Qualified Code(s): N18.9 - Chronic kidney disease, unspecified Disposition: Admitted As Inpatient Condition: Good Time of Disposition: 09:19 General Adult HPI - General Chief complaint: ED General Medical Stated complaint: rt neph tube leaking Time Seen by Provider: 08/14/18 06:19 Source: patient, family Limitations: no limitations - History of Present Illness HPI Narrative: Patient was seen by the prior provider. Please see the complete history and physical. Pain Scale: 8 - Related Data Home Medications Medication Instructions Recorded Confirmed Amlodipine Besylate 10 mg PO DAILY 01/14/18 06/19/18 Fluticasone Propionate Nasal 2 spr NS DAILY PRN 01/14/18 06/19/18 [Flonase] Lisinopril [Zestril] 20 mg PO DAILY 01/14/18 06/19/18 Loratadine [Allergy Relief] 10 mg PO DAILY 01/14/18 06/19/18 Cyanocobalamin (B-12) [Vitamin B12] 1,000 mcg PO DAILY 06/19/18 06/19/18 Previous Rx's Medication Instructions Recorded Iron Polysaccharide Complex [Pro 180 mg PO DAILY #30 capsule 06/22/18 Fe] Allergies Allergy/AdvReac Type Severity Reaction Status Date / Time No Known Allergies Allergy Verified 06/19/18 07:20 Constitutional: Reports: chills. 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 Patient's history confirmed by the family at bedside. Notes purulent drainage was some erythema around the right nephrostomy tube. Similar to a month ago when her to was infected and require admission. No fevers. Patient has been having some back pain. Notes to his continuing to function produce urine. Given the purlent drainage will broaden the antibiotic coverage. Time: 07:07 - Consultations Consultation #1: Discussed the case with IR who would eval the patient. Time: 09:08 Vital Signs Temperature 98.0 F 08/14/18 06:09 Pulse Rate 99 08/14/18 06:09 Respiratory Rate 16 08/14/18 06:09 Blood Pressure 152/78 08/14/18 06:09 O2 Sat by Pulse Oximetry 100 08/14/18 06:09 Temperature 98.9 F 08/14/18 07:40 Pulse Rate 90 08/14/18 08:48 Respiratory Rate 20 08/14/18 08:48 Blood Pressure 160/64 08/14/18 08:48 O2 Sat by Pulse Oximetry 100 08/14/18 08:48 Oxygen Delivery Oxygen Delivery Room Air Medical Decision Making - MDM Narrative Medical decision making narrative: Patient was signed by the prior provider. Concerns for nephrostomy tube with surrounding infection and had purulent drainage. Patient appears nontoxic. Florian ansari did get basic labs urinalysis. Patient's prior urine cultures negative. Given concerns for infection patient was started on Zosyn as well as make. Patient did get imaging to rule out any intra-abdominal abscess. Patient's CT scan is consistent with concerns of infection of the proximal ureter. Patient case was discussed with IR who also evaluate the patient to see if it needs to be checked drained or exchanged. Patient is agreeable said plan of care. - Lab Data Lab results reviewed: Yes I reviewed the patient's lab results. Result diagrams: 08/14/18 07:06 08/14/18 07:06 Lab Results 08/14/18 08/14/18 08/14/18 Range/Units 07:06 07:06 07:54 WBC 9.6 (4.3-11.1) K/mcL RBC 3.00 L (3.82-4.97) M/mcL Hgb 9.3 L (11.5-15.4) g/dL Hct 29.6 L (35.3-44.9) % MCV 98.7 (83.0-100.0) fL MCH 31.0 (28.0-33.3) pg MCHC 31.4 L (31.6-35.5) g/dL RDW 15.2 H (11.5-14.5) % Plt Count 242 (140-400) K/mcL MPV 8.7 L (9.4-12.4) fL Immature Gran % 0.6 (0-4) % Seg Neutrophils % 85.5 % Lymphocytes % 6.6 % Monocytes % 7.3 % Eosinophils % 0.0 % Basophils % 0.0 % Neutrophils # 8.2 (1.6-8.9) K/mcL Lymphocytes # 0.6 (0.6-4.6) K/mcL Monocytes # 0.7 (0.0-1.3) K/mcL Eosinophils # 0.0 (0.0-0.6) K/mcL Basophils # 0.0 (0.0-0.2) K/mcL Sodium 136 (136-145) mEq/L Potassium 5.5 H (3.5-5.1) mEq/L Chloride 109 H (98-107) mEq/L Carbon Dioxide 14 L (23-29) mEq/L BUN 66 H (8-23) mg/dL Creatinine 3.56 H (0.60-1.20) mg/dL Est GFR ( Amer) 15 L (> 60) Est GFR (Non-Af Amer) 12 L (> 60) BUN/Creatinine Ratio 19 (6-26) Glucose 122 H (70-105) mg/dL Calculated Osmolality 302 H (280-300) Lactic Acid 0.8 (0.5-2.2) mmol/L Calcium 9.6 (8.6-10.3) mg/dL Urine Microscopic RBC (0-3) per hpf Urine Microscopic WBC (0-3) per hpf Triple Phos Crystals Ur Culture Indicated? (NO) 08/14/18 Range/Units 08:30 WBC (4.3-11.1) K/mcL RBC (3.82-4.97) M/mcL Hgb (11.5-15.4) g/dL Hct (35.3-44.9) % MCV (83.0-100.0) fL MCH (28.0-33.3) pg MCHC (31.6-35.5) g/dL RDW (11.5-14.5) % Plt Count (140-400) K/mcL MPV (9.4-12.4) fL Immature Gran % (0-4) % Seg Neutrophils % % Lymphocytes % % Monocytes % % Eosinophils % % Basophils % % Neutrophils # (1.6-8.9) K/mcL Lymphocytes # (0.6-4.6) K/mcL Monocytes # (0.0-1.3) K/mcL Eosinophils # (0.0-0.6) K/mcL Basophils # (0.0-0.2) K/mcL Sodium (136-145) mEq/L Potassium (3.5-5.1) mEq/L Chloride (98-107) mEq/L Carbon Dioxide (23-29) mEq/L BUN (8-23) mg/dL Creatinine (0.60-1.20) mg/dL Est GFR ( Amer) (> 60) Est GFR (Non-Af Amer) (> 60) BUN/Creatinine Ratio (6-26) Glucose (70-105) mg/dL Calculated Osmolality (280-300) Lactic Acid (0.5-2.2) mmol/L Calcium (8.6-10.3) mg/dL Urine Microscopic RBC TNTC H (0-3) per hpf Urine Microscopic WBC 0-3 (0-3) per hpf Triple Phos Crystals Present Ur Culture Indicated? YES A (NO) - Radiology Data Radiology results reviewed: Yes I reviewed the patient's radiology results. Abdomen/Pelvis CT 08/14/18 07:56 IMPRESSION: Mild right-sided hydronephrosis with a right-sided nephrostomy tube that appears in satisfactory position. Mild nonspecific circumferential ureteral wall thickening seen within the proximal right ureter that may relate to an infectious or inflammatory process although correlation is needed. Atrophic left kidney containing a left-sided nephrostomy tube that appears in satisfactory position. There is mild nonspecific stranding within the left renal pelvis that may relate to an infectious or inflammatory process although correlation is needed. Uncomplicated colonic diverticulosis. Age-indeterminate compression deformity at L1. D/ / Ezekiel Wilkins / Ezekiel Wilkins Interpreting Provider: Ezekiel Wilkins Yanique - Yanique Situation: Demographics Background: Presenting Complaint Assessment: Vital Signs, Course and respsone to treatment Recommendation: Barrier(s) to disposition, Recommendation based on pending studies, treatments, or consults Yanique Report Given to: Hospitalist Yanique Reveles Time: 09:17
[2018-08-14] MEDS ORDERED: Piperacillin/Tazobactam 3.375 GM in 0.9 % Sodium Chloride Mini Bag 100 ML IVPB ONE (07:23)
[2018-08-14] MEDS ORDERED: 0.9 % Sodium Chloride 1,000 ML IVC ONE (07:25)
--- NOTE | 2018-08-14 07:26 | Emergency Department Note ---
Disposition Clinical Impression: Nephrostomy tube failure with subsequent urine leak Disposition: Admitted As Inpatient Condition: Good Referrals: Tamara Granda MD [Primary Care Provider] - Forms: ED Satisfaction Letter, Work/School Release General Adult HPI - General Chief complaint: ED General Medical Stated complaint: rt neph tube leaking Time Seen by Provider: 08/14/18 06:19 Source: patient, family Limitations: no limitations Nursing Notes Reviewed: Yes Vital Signs Reviewed: Yes - History of Present Illness Pain Scale: 8 - Related Data Home Medications Medication Instructions Recorded Confirmed Amlodipine Besylate 10 mg PO DAILY 01/14/18 06/19/18 Fluticasone Propionate Nasal 2 spr NS DAILY PRN 01/14/18 06/19/18 [Flonase] Lisinopril [Zestril] 20 mg PO DAILY 01/14/18 06/19/18 Loratadine [Allergy Relief] 10 mg PO DAILY 01/14/18 06/19/18 Cyanocobalamin (B-12) [Vitamin B12] 1,000 mcg PO DAILY 06/19/18 06/19/18 Previous Rx's Medication Instructions Recorded Iron Polysaccharide Complex [Pro 180 mg PO DAILY #30 capsule 06/22/18 Fe] Allergies Allergy/AdvReac Type Severity Reaction Status Date / Time No Known Allergies Allergy Verified 06/19/18 07:20 Constitutional: Reports: chills. 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 - Social History Smoking Status: Never smoker Smokeless Tobacco Status: No Alcohol use: Reports: none Drug use: Reports: none Physical Exam - General Limitations: no limitations General appearance: alert, in no apparent distress Course Vital Signs Temperature 98.0 F 08/14/18 06:09 Pulse Rate 99 08/14/18 06:09 Respiratory Rate 16 08/14/18 06:09 Blood Pressure 152/78 08/14/18 06:09 O2 Sat by Pulse Oximetry 100 08/14/18 06:09 Temperature 98.0 F 08/14/18 06:09 Pulse Rate 99 08/14/18 06:09 Respiratory Rate 16 08/14/18 06:09 Blood Pressure 152/78 08/14/18 06:09 O2 Sat by Pulse Oximetry 100 08/14/18 06:09 Oxygen Delivery Oxygen Delivery Room Air Attestation Statement - Attestation Attestation: I, Keon Rosario MD, personally evaluated this patient and discussed their management with the resident physician. I reviewed the resident's note and agree with the documented findings, medical decision making, and plan of care. 78-year-old female with chronic bilateral nephrostomy tubes presents with complaint that she awoke this morning and the dressing on the right nephrostomy tube was saturated. When her daughter change the dressing there was some pur ulent drainage. She also had some pain over the right kidney area and decreased drainage from the right nephrostomy tube. No fever. On examination patient is a well-developed well-nourished elderly female in no acute distress. She is alert and oriented 3. There is no cyanosis or diaphoresis. Breath sounds are clear and equal bilaterally. Heart regular rate and rhythm. Abdomen soft and nontender with normal bowel sounds. There is some tenderness over the right CVA region. There is a small amount of blood-tinged urine in the right nephrostomy bag. At shift change patient is signed out to the oncoming dayshift team, Dr. Mcclendon and Dr. Galdamez.
[2018-08-14 07:29] LABS: Hematocrit 29.6 % (35.3-44.9); Hemoglobin 9.3 g/dL (11.5-15.4); Immature Granulocytes % 0.6 % (0-4); Lymphocytes # 0.6 K/mcL (0.6-4.6); Lymphocytes % 6.6 %; Mean Corpuscular HGB Conc 31.4 g/dL (31.6-35.5); Mean Corpuscular Volume 98.7 fL (83.0-100.0); Mean Platelet Volume 8.7 fL (9.4-12.4); Monocytes # 0.7 K/mcL (0.0-1.3); Monocytes % 7.3 %; Neutrophils # 8.2 K/mcL (1.6-8.9); Platelet Count 242 K/mcL (140-400); Red Cell Distribution Width 15.2 % (11.5-14.5); Segmented Neutrophils % 85.5 %
[2018-08-14 07:48] LABS: Calcium 9.6 mg/dL (8.6-10.3); Potassium 5.5 mEq/L (3.5-5.1)
--- NOTE | 2018-08-14 08:11 | Emergency Department Note ---
Disposition Clinical Impression: Nephrostomy tube failure with subsequent urine leak, Anemia, Chronic kidney disease, Pyelonephritis Disposition: Admitted As Inpatient Condition: Good General Adult HPI - General Chief complaint: ED General Medical Stated complaint: rt neph tube leaking Time Seen by Provider: 08/14/18 06:19 Source: patient, family Limitations: no limitations - History of Present Illness Pain Scale: 8 - Related Data Home Medications Medication Instructions Recorded Confirmed Amlodipine Besylate 10 mg PO DAILY 01/14/18 06/19/18 Fluticasone Propionate Nasal 2 spr NS DAILY PRN 01/14/18 06/19/18 [Flonase] Lisinopril [Zestril] 20 mg PO DAILY 01/14/18 06/19/18 Loratadine [Allergy Relief] 10 mg PO DAILY 01/14/18 06/19/18 Cyanocobalamin (B-12) [Vitamin B12] 1,000 mcg PO DAILY 06/19/18 06/19/18 Previous Rx's Medication Instructions Recorded Iron Polysaccharide Complex [Pro 180 mg PO DAILY #30 capsule 06/22/18 Fe] Allergies Allergy/AdvReac Type Severity Reaction Status Date / Time No Known Allergies Allergy Verified 06/19/18 07:20 Constitutional: Reports: chills. 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 - Social History Smoking Status: Never smoker Smokeless Tobacco Status: No Alcohol use: Reports: none Drug use: Reports: none Physical Exam - General Limitations: no limitations General appearance: alert, in no apparent distress Course Vital Signs Temperature 98.0 F 08/14/18 06:09 Pulse Rate 99 08/14/18 06:09 Respiratory Rate 16 08/14/18 06:09 Blood Pressure 152/78 08/14/18 06:09 O2 Sat by Pulse Oximetry 100 08/14/18 06:09 Temperature 98.3 F 08/14/18 08:00 Pulse Rate 90 08/14/18 08:48 Respiratory Rate 20 08/14/18 08:48 Blood Pressure 160/64 08/14/18 08:48 O2 Sat by Pulse Oximetry 100 08/14/18 08:48 Oxygen Delivery Oxygen Delivery Room Air Medical Decision Making - Lab Data Result diagrams: 08/14/18 07:06 08/14/18 07:06 Lab Results 08/14/18 08/14/18 08/14/18 Range/Units 07:06 07:06 07:54 WBC 9.6 (4.3-11.1) K/mcL RBC 3.00 L (3.82-4.97) M/mcL Hgb 9.3 L (11.5-15.4) g/dL Hct 29.6 L (35.3-44.9) % MCV 98.7 (83.0-100.0) fL MCH 31.0 (28.0-33.3) pg MCHC 31.4 L (31.6-35.5) g/dL RDW 15.2 H (11.5-14.5) % Plt Count 242 (140-400) K/mcL MPV 8.7 L (9.4-12.4) fL Immature Gran % 0.6 (0-4) % Seg Neutrophils % 85.5 % Lymphocytes % 6.6 % Monocytes % 7.3 % Eosinophils % 0.0 % Basophils % 0.0 % Neutrophils # 8.2 (1.6-8.9) K/mcL Lymphocytes # 0.6 (0.6-4.6) K/mcL Monocytes # 0.7 (0.0-1.3) K/mcL Eosinophils # 0.0 (0.0-0.6) K/mcL Basophils # 0.0 (0.0-0.2) K/mcL Sodium 136 (136-145) mEq/L Potassium 5.5 H (3.5-5.1) mEq/L Chloride 109 H (98-107) mEq/L Carbon Dioxide 14 L (23-29) mEq/L BUN 66 H (8-23) mg/dL Creatinine 3.56 H (0.60-1.20) mg/dL Est GFR ( Amer) 15 L (> 60) Est GFR (Non-Af Amer) 12 L (> 60) BUN/Creatinine Ratio 19 (6-26) Glucose 122 H (70-105) mg/dL Calculated Osmolality 302 H (280-300) Lactic Acid 0.8 (0.5-2.2) mmol/L Calcium 9.6 (8.6-10.3) mg/dL Urine Microscopic RBC (0-3) per hpf Urine Microscopic WBC (0-3) per hpf Triple Phos Crystals Ur Culture Indicated? (NO) 08/14/18 Range/Units 08:30 WBC (4.3-11.1) K/mcL RBC (3.82-4.97) M/mcL Hgb (11.5-15.4) g/dL Hct (35.3-44.9) % MCV (83.0-100.0) fL MCH (28.0-33.3) pg MCHC (31.6-35.5) g/dL RDW (11.5-14.5) % Plt Count (140-400) K/mcL MPV (9.4-12.4) fL Immature Gran % (0-4) % Seg Neutrophils % % Lymphocytes % % Monocytes % % Eosinophils % % Basophils % % Neutrophils # (1.6-8.9) K/mcL Lymphocytes # (0.6-4.6) K/mcL Monocytes # (0.0-1.3) K/mcL Eosinophils # (0.0-0.6) K/mcL Basophils # (0.0-0.2) K/mcL Sodium (136-145) mEq/L Potassium (3.5-5.1) mEq/L Chloride (98-107) mEq/L Carbon Dioxide (23-29) mEq/L BUN (8-23) mg/dL Creatinine (0.60-1.20) mg/dL Est GFR ( Amer) (> 60) Est GFR (Non-Af Amer) (> 60) BUN/Creatinine Ratio (6-26) Glucose (70-105) mg/dL Calculated Osmolality (280-300) Lactic Acid (0.5-2.2) mmol/L Calcium (8.6-10.3) mg/dL Urine Microscopic RBC TNTC H (0-3) per hpf Urine Microscopic WBC 0-3 (0-3) per hpf Triple Phos Crystals Present Ur Culture Indicated? YES A (NO) Attestation Statement - Attestation Attestation: I examined this patient and my medical decision-making was reviewed with the Resident Physician. I agree with the documented findings, disposition and treatment plan as described except to the extent set forth below. Patient to the ED with a chief complaint of a nephrostomy tube leaking. Patient has bilateral nephrostomy tubes. They were changed in June. Decreased output from the right with some purulent drainage from the insertion site. Denies fever vomiting. States she feels okay otherwise. On exam she has a scant amount of purulent discharge from the insertion site. The bag is now draining after being changed. Plan. Basic labs. CT. Urine. CT reviewed. Concern for infection. Admitted to medicine with consult IR. Abdomen/Pelvis CT 08/14/18 07:56 IMPRESSION: Mild right-sided hydronephrosis with a right-sided nephrostomy tube that appears in satisfactory position. Mild nonspecific circumferential ureteral wall thickening seen within the proximal right ureter that may relate to an infectious or inflammatory process although correlation is needed. Atrophic left kidney containing a left-sided nephrostomy tube that appears in satisfactory position. There is mild nonspecific stranding within the left renal pelvis that may relate to an infectious or inflammatory process although correlation is needed. Uncomplicated colonic diverticulosis. Age-indeterminate compression deformity at L1. D/ / Ezekiel Wilkins / Ezekiel Wilkins Interpreting Provider: Ezekiel Wilkins
[2018-08-14 08:45] LABS: Bilirubin,Urine Negative (Negative); Blood,Urine Large (Negative); Clarity,Urine Turbid (Clear); Glucose,Urine (UA) Normal (Normal); Ketones,Urine Negative (Negative); Leukocyte Esterase,Urine Large (Negative); Nitrite,Urine Negative (Negative); PH,Urine 8.5 pH Units (5.0-8.0); Protein,Urine >=300 mg/dL (Neg-Trace); Specific Gravity,Urine < 1.005 (1.010-1.025); Urobilinogen,Urine Normal (Normal)
[2018-08-14 08:50] LABS: Color,Urine Amber (Yellow)
[2018-08-14 09:00] LABS: RBC,Urine TNTC per hpf (0-3); Triple Phosphate Crystal,Urine Present
[2018-08-14 09:04] LABS: WBC,Urine 0-3 per hpf (0-3)
[2018-08-14] MEDS ORDERED: Naloxone 0.4 MG/ML INJ IVP PRN (09:24)
[2018-08-14] MEDS ORDERED: Fluticasone Propionate Nasal 50 MCG/SPRAY BOTTLE NS PRN (09:28)
[2018-08-14] MEDS ORDERED: 0.9 % Sodium Chloride 500 ML ONE (09:52)
[2018-08-14] MEDS ORDERED: Isovue-300 50 ML VIAL IVP ONE (10:41)
--- NOTE | 2018-08-14 10:50 | Internal Med History&Physical ---
Date of Encounter: 08/14/18 Time of Encounter: 10:45 Internal Medicine - H&P: HPI Chief complaint: purulent drainage around right nephrostomy tube History of present illness: Ms. Alcantar is a 78 year old female with pmh of cervical cancer s/p bilateral nephrostomy tube placement due to complications with treatment presenting with complaints of purulent drainage around right nephrostomy tube. Patient lives with her daughter and complained of worsening lower back pain for the last couple of days and malfunctioning nephrostomy tube. Her daughter says on inspecting the tube site, pus was present around it and that's why she brought her to the ER, She admits to chills , denies any fevers, nausea or vomiting. She has had previous episodes fo malfunctioning tubes and was here in june. In the ER, she was started on IV fluids and antibiotics and she is being admit rub[facility] for IR nephrostomy tube exchange Past Med Surg Social Fam HX - Past Medical History Medical history: cancer, hyperlipidemia, hypertension, kidney stones, renal disease, other Additional medical history: Cervical Cancer: Chemo and radiation Psychiatric history: no psych history - Past Surgical History Surgical History: other Additional surgical history: bi-lat nephrostomy tube - Social History Smoking Status: Never smoker Smokeless Tobacco Status: No Alcohol use: none Drug use: none - Family History Mother Hx Family Cancer: Yes Internal Medicine - H&P: Meds Amlodipine Besylate 10 mg PO DAILY 01/14/18 [History] Fluticasone Propionate Nasal [Flonase] 2 spr NS DAILY PRN 01/14/18 [History] Lisinopril [Zestril] 20 mg PO DAILY 01/14/18 [History] Loratadine [Allergy Relief] 10 mg PO DAILY 01/14/18 [History] Cyanocobalamin (B-12) [Vitamin B12] 1,000 mcg PO DAILY 06/19/18 [History] Iron Polysaccharide Complex [Pro Fe] 180 mg PO DAILY #30 capsule 06/22/18 [Rx] Allergy/AdvReac Type Severity Reaction Status Date / Time No Known Allergies Allergy Verified 06/19/18 07:20 All Systems PM: A 10-system review of systems was performed and is negative for pertinent findings except as documented above in the HPI. - Constitutional Constitutional: no chills, no fever(s), no night sweats - EENT Eyes: no change in vision, no discharge, no pain, no photophobia Ears: no ear discharge, no ear pain, no tinnitus Nose, mouth and throat: no dysphagia, no nasal discharge, no neck pain, no sore throat - Cardiovascular Cardiovascular ROS IM: no chest pain, no diaphoresis, no dyspnea, no lightheadedness, no palpitations, no syncope - Respiratory Respiratory: no cough, no dyspnea, no wheezing, no excessive phlegm production - Gastrointestinal Gastrointestinal: no abdominal pain, no diarrhea, no hematemesis, no hematochezia, no melena, no nausea, no vomiting - Genitourinary Genitourinary: no change in urinary stream, no dysuria, no flank pain, no hematuria - Musculoskeletal Musculoskeletal ROS IM: no numbness, no tingling - Integumentary Integumentary IM: no rash, no unusual bruising - Neurological Neurological ROS: no confusion, no convulsions, no focal weakness, no numbness, no tingling, no tremor(s) - Hematologic/Lymphatic Hematologic/Lymphatic: no easy bruising - Constitutional Vitals: Temp Pulse Resp BP Pulse Ox 98.3 F 118 22 159/87 100 08/14/18 08:00 08/14/18 10:35 08/14/18 10:35 08/14/18 10:35 08/14/18 10:35 Exam: NAD - Additional comments: Bilateral nephrostomy tubes in place Internal Med - H&P Results - Labs CBC & Chem 7: 08/14/18 07:06 08/14/18 07:06 Labs: Short CBC 08/14/18 Range/Units 07:06 WBC 9.6 (4.3-11.1) K/mcL Hgb 9.3 L (11.5-15.4) g/dL Hct 29.6 L (35.3-44.9) % Plt Count 242 (140-400) K/mcL Neutrophils # 8.2 (1.6-8.9) K/mcL BMP 08/14/18 07:06 Sodium 136 Potassium 5.5 H Chloride 109 H Carbon Dioxide 14 L BUN 66 H Creatinine 3.56 H Glucose 122 H Calcium 9.6 Urine 08/14/18 Range/Units 08:30 Urine Color Ayana A (Yellow) Urine Clarity Turbid A (Clear) Urine pH 8.5 H (5.0-8.0) pH Units Ur Specific Aston < 1.005 L (1.010-1.025) Urine Protein >=300 H (Neg-Trace) mg/dL Urine Glucose (UA) Normal (Normal) mg/dL - Impressions ITS Impressions Abdomen/Pelvis CT 08/14/18 07:56 IMPRESSION: Mild right-sided hydronephrosis with a right-sided nephrostomy tube that appears in satisfactory position. Mild nonspecific circumferential ureteral wall thickening seen within the proximal right ureter that may relate to an infectious or inflammatory process although correlation is needed. Atrophic left kidney containing a left-sided nephrostomy tube that appears in satisfactory position. There is mild nonspecific stranding within the left renal pelvis that may relate to an infectious or inflammatory process although correlation is needed. Uncomplicated colonic diverticulosis. Age-indeterminate compression deformity at L1. D/ / Ezekiel Wilkins / Ezekiel Wilkins Interpreting Provider: Ezekiel Wilkins - Assessment and plan (1) Nephrostomy tube failure with subsequent urine leak Current Visit: Yes Status: Acute Assessment and plan: Pt comes in with purulent drainage from nephrostomy tube. CT abdomen shows ureteral wall thickening and mild hydronephrosis IR consulted and will exchange nephrostomy tubes. Will start on antibiotics with IV ceftriaxone. Follow up blood and urine cultures (2) Pyelonephritis Current Visit: Yes Status: Acute Assessment and plan: Pt has lower back pain and pus around nephrostomy tube site on admission Started on antibiotics. WIll have nephrostokmy tubes exchanged. Follow up souleymane parkstures (3) Infection associated with nephrostomy catheter Current Visit: Yes Status: Acute Assessment and plan: Continue ceftriaxone Qualifiers: Encounter type: initial encounter Qualified Code(s): T83.512A - Infection and inflammatory reaction due to nephrostomy catheter, initial encounter (4) Chronic kidney disease Current Visit: Yes Status: Acute Assessment and plan: Pt has CKD stage 5. No acute worsening. Will start on IV fluids Qualifiers: Chronic kidney disease stage: stage 5, not on chronic dialysis Qualified Code(s): N18.5 - Chronic kidney disease, stage 5 (5) Hyperkalemia Current Visit: Yes Status: Acute Assessment and plan: Will give one dose of kayexalate. Repeat BMP in am (6) DVT prophylaxis Current Visit: Yes Status: Acute Assessment and plan: Heparin sc - Time Spent With Patient Total time spent is greater than 50% in coordination of care (as documented) at patient's floor/unit and/or counseling patient:
--- NOTE | 2018-08-14 11:13 | IR Procedure Note ---
Date of procedure: 08/14/18 Consent Obtained: Written consent Timeout: Correct patient and procedure verified, Correct site verified, Time out performed, Skin prep completed Local anesthetic: Lidocaine 1% Indications: obstructed rt nephrostomy, misplaced lt nephrostomy Procedure Performed: bilateral nephrostograms and nephrostomy tube replacement Was there an executive chef assistant present: No Site/Technique: bilateral, 10F tubes placed Results/Findings: adequate placement Estimated blood loss (cc): 0 Complications: None; Tolerated procedure well Post Procedure Treatment Plan: [facility] Specimen: none
[2018-08-14] MEDS: 0.9 % Sodium Chloride 1,000 ML IVC SCH (11:43)
[2018-08-14] MEDS ORDERED: *HR* OxyCODONE/APAP 5/325 TABLET PO PRN (12:00)
[2018-08-14] MEDS ORDERED: Ondansetron 4 MG/2 ML VIAL IVP PRN (12:00)
[2018-08-14] MEDS: *HR* Heparin 5,000 UNIT/ML VIAL SQ SCH (19:27)
[2018-08-15] MEDS: 0.9 % Sodium Chloride 1,000 ML IVC SCH (01:26)
[2018-08-15 04:55] LABS: Basophils % 0.1 %; Hematocrit 25.4 % (35.3-44.9); Hemoglobin 7.9 g/dL (11.5-15.4); Immature Granulocytes % 0.7 % (0-4); Lymphocytes # 0.4 K/mcL (0.6-4.6); Lymphocytes % 5.3 %; Mean Corpuscular HGB Conc 31.1 g/dL (31.6-35.5); Mean Corpuscular Hemoglobin 30.6 pg (28.0-33.3); Mean Corpuscular Volume 98.4 fL (83.0-100.0); Mean Platelet Volume 8.9 fL (9.4-12.4); Monocytes # 0.2 K/mcL (0.0-1.3); Monocytes % 2.2 %; Neutrophils # 6.8 K/mcL (1.6-8.9); Platelet Count 205 K/mcL (140-400); Red Blood Count 2.58 M/mcL (3.82-4.97); Red Cell Distribution Width 15.1 % (11.5-14.5); Segmented Neutrophils % 91.7 %
[2018-08-15 05:13] LABS: Calcium 8.3 mg/dL (8.6-10.3); Magnesium 1.5 mg/dL (1.6-2.6); Phosphorous 5.1 mg/dL (2.7-4.5); Potassium 4.7 mEq/L (3.5-5.1)
[2018-08-15] MEDS: *HR* Heparin 5,000 UNIT/ML VIAL SQ SCH ×2 (05:28→17:12)
[2018-08-15] MEDS: cefTRIAXone 1,000 MG in Water for inj. (sterile) 20 ML 10 ML IVP SCH (08:51)
[2018-08-15] MEDS: Cyanocobalamin (B-12) 1,000 MCG TABLET PO SCH (08:52)
[2018-08-15] MEDS: amLODIPine 5 MG TABLET PO SCH (08:52)
[2018-08-15] MEDS: Lisinopril 20 MG TABLET PO SCH (08:52)
[2018-08-15] MEDS: Loratadine 10 MG TABLET PO SCH (08:53)
--- NOTE | 2018-08-15 23:59 | Internal Med Progress Note ---
Hospitalist Progress Note - Encounter Date of Encounter: 08/15/18 Time of Encounter: 19:00 - Subjective Interval History: SUBJECTIVE: The patient feels good. Her leaking right nephrostomy tube has been replaced by interventional radiology. The left tube seems to be working fine. She does not have any significant pain in her flanks. Denies chest pain and difficulty breathing. Denies abdominal pain, nausea and vomiting. Her nephrostomy tubes are draining good amounts of urine. OBJECTIVE: Skin: Free of rash and discoloration. ENMT: Oral/pharyngeal mucosa is normal in appearance. Eyes: Sclera is white. There is no discharge from eyes. Respiratory: Normal breath sounds; no crackles or wheezes. CV: Heart is regular; no gallop or murmur. GI: Abdomen is soft and not tender. There is no palpable mass or visceromegaly. Neuro: There is no focal deficits. ADDITIONAL DATA: Urine culture and blood cultures are pending. CBC shows hemoglobin of 7.9 with normal WBC/platelet count. Her electrolytes are showing bicarb of 13; 14 yesterday. Creatinine is 3.48 with GFR of 13. ASSESSMENT AND PLAN: Right nephrostomy keep failure with subsequent urine leak/infection associated with nephrostomy catheter/acute pyelonephritis. She gets IV fluids. She gets IV Rocephin. Hypertensive renal disease with CKD stage V/anemia due to chronic kidney dise ase. Those 2 problems seem to be stable. She is on lisinopril. DISPOSITION: I would discharge her, when urine/blood cultures results are available. - Exam Vitals: Temp Pulse Resp BP Pulse Ox 99.0 F 89 14 106/64 97 08/15/18 19:19 08/15/18 19:19 08/15/18 19:19 08/15/18 19:19 08/15/18 19:19 Exam: xx - Assessment and Plan (1) Nephrostomy tube failure with subsequent urine leak Current Visit: Yes Status: Acute (2) Infection associated with nephrostomy catheter Current Visit: Yes Status: Acute (3) Pyelonephritis Current Visit: Yes Status: Acute (4) Hypertensive renal disease with renal failure Current Visit: Yes Status: Chronic (5) Anemia Current Visit: Yes Status: Chronic (6) Hyperkalemia Current Visit: Yes Status: Resolved - Time Spent with Patient Total time spent is greater than 50% in coordination of care (as documented) at patient's floor/unit and/or counseling patient: 25 - 35 minutes Plan of Care Discussed with: patient Internal Medicine: Result - Labs CBC & Chem 7: 08/15/18 04:28 08/15/18 04:28 Labs: Short CBC 08/15/18 Range/Units 04:28 WBC 7.4 (4.3-11.1) K/mcL Hgb 7.9 L (11.5-15.4) g/dL Hct 25.4 L (35.3-44.9) % Plt Count 205 (140-400) K/mcL Neutrophils # 6.8 (1.6-8.9) K/mcL BMP 08/15/18 04:28 Sodium 138 Potassium 4.7 Chloride 114 H Carbon Dioxide 13 L BUN 55 H Creatinine 3.48 H Glucose 98 Calcium 8.3 L Consult Discharge Plan - Plan Referrals: Tamara Granda MD [Primary Care Provider] - (2) Infection associated with nephrostomy catheter Qualifiers: Encounter type: initial encounter Qualified Code(s): T83.512A - Infection and inflammatory reaction due to nephrostomy catheter, initial encounter (5) Anemia Qualifiers: Anemia type: due to chronic kidney disease Chronic kidney disease stage: stage 5, not on chronic dialysis Qualified Code(s): N18.5 - Chronic kidney disease, stage 5; D63.1 - Anemia in chronic kidney disease
[2018-08-16] MEDS: *HR* Heparin 5,000 UNIT/ML VIAL SQ SCH (05:32)
[2018-08-16] MEDS: cefTRIAXone 1,000 MG in Water for inj. (sterile) 20 ML 10 ML IVP SCH (07:27)
[2018-08-16] MEDS: Loratadine 10 MG TABLET PO SCH (07:28)
[2018-08-16] MEDS: amLODIPine 5 MG TABLET PO SCH (07:28)
[2018-08-16] MEDS: Cyanocobalamin (B-12) 1,000 MCG TABLET PO SCH (07:28)
[2018-08-16] MEDS: Lisinopril 20 MG TABLET PO SCH (07:29)
[2018-08-16] MEDS ORDERED: Iron Polysaccharide Complex 150 MG CAPSULE PO SCH (09:00)
[2018-08-16 14:50] VITALS: BP 118/72
--- NOTE | 2018-08-16 15:10 | Discharge Summary ---
Orders not resulted at time of discharge: Pending orders 08/14/18 07:06 Culture,Blood [BC] Stat 08/14/18 07:23 Culture,Wound [RM] Stat Date of Encounter: 08/16/18 Time of Encounter: 14:48 - Discharge Diagnosis (1) Nephrostomy tube failure with subsequent urine leak Priority: Primary Status: Acute (2) Infection associated with nephrostomy catheter Priority: Primary Status: Acute Qualifiers: Encounter type: initial encounter Qualified Code(s): T83.512A - Infection and inflammatory reaction due to nephrostomy catheter, initial encounter (3) Pyelonephritis Priority: Primary Status: Acute (4) Hypertensive renal disease with renal failure Priority: Secondary Status: Chronic (5) Anemia Priority: Secondary Status: Chronic Qualifiers: Anemia type: due to chronic kidney disease Chronic kidney disease stage: stage 5, not on chronic dialysis Qualified Code(s): N18.5 - Chronic kidney disease, stage 5; D63.1 - Anemia in chronic kidney disease (6) Hyperkalemia Priority: Secondary Status: Acute Hospital course: HOSPITAL COURSE: The patient is an 78-year-old woman. She carries a bilateral nephrostomy tubestarted after treatment of her uterine cancer (remotely). She was admitted to after she had noticed a leakage of purulent urine next to her right nephrostomy tube. The tube was replaced by interventional radiology. The patient got treatment for urinary tract infection (significant changes in urine). She was treated with IV Rocephin. She was getting when necessary oxycodone for controlling her pain in the area of right flank. Her urine culture showed E. coli sensitive to ceftriaxone. I decided to discharge her home on Omnicef. CONDITION AT DISCHARGE: Feels good. Her nephrostomy tubes are working well. The urine from the [facility] is normal color. Her right flank pain nearly completely subsided. The patient has underlying CKD stage IV/V. Skin: Free of rash and discoloration. Respiratory: Normal breath sounds with no crackles and wheezes bilaterally. CV: Heart is regular with no gallop or murmur. GI: Abdomen is flat and soft with no palpable mass or visceromegaly. Neuro exam: There is no focal deficits. Normal speech, swallowing and gait. SEE DISCHARGE ORDERS/MEDICATIONS - Time Spent with Patient Total time spent providing and/or coordinating discharge services: Greater than 30 minutes (35 minutes...) - Discharge Medications Prescriptions: Cefdinir [Omnicef] 300 mg PO DAILY 7 Days #7 capsule Home Medications: Lisinopril [Zestril] 20 mg PO DAILY 01/14/18 [History] Loratadine [Allergy Relief] 10 mg PO DAILY 01/14/18 [History] Iron Polysaccharide Complex [Pro Fe] 180 mg PO DAILY #30 capsule 06/22/18 [Rx] Amlodipine Besylate 10 mg PO DAILY 08/14/18 [History] Cefdinir [Omnicef] 300 mg PO DAILY 7 Days #7 capsule 08/16/18 [Rx] Allergies/Adverse Reactions: Allergy/AdvReac Type Severity Reaction Status Date / Time atenolol AdvReac See Verified 08/14/18 21:59 Comments Date of admission: 08/14/18 09:31 Primary care physician: Tamara Granda Consults: 08/14/18 09:07 Consult to Interventional Radiology [CONS] Stat Consulting Provider: Radiology Interventional Cols Reason for Consult: Nephrostomy tube eval Call Completed: Yes Discharging clinician: Roland Hoang Anticipated date of discharge: 08/16/18 - Constitutional Vitals: Temp Pulse Resp BP Pulse Ox 98.0 F 87 12 125/71 97 08/16/18 10:04 08/16/18 10:04 08/16/18 10:04 08/16/18 10:04 08/16/18 10:04 General appearance: Present: A&O X 3, no acute distress, answers questions appropriately Exam: xx - Patient Status Disposition: Home, Self-Care Condition: Good Overall status at discharge: patient is back to baseline - Discharge Instructions Follow Up With: Tamara Granda MD [Primary Care Provider] - Additional Instructions: 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 - Diet and Activity Activity: increase activity as tolerated Diet: low fat, low cholesterol - VTE Deep Vein Thrombosis/Pulmonary Embolism Present on Admission: No
== END 2018-08-16 16:15 | disposition home or self-care (01) ==
LOC: EMEROOARM 06:05 → 3ANU 06:05 → SUATTDRO 09:31 → 3ANU 10:02
PROVIDERS: ADMIT Student in an Organized Health Care Education/Training Program; ATTEND Internal Medicine

== ENCOUNTER 2019-09-20 11:42 | Observation (INO) ==
[2019-09-20] MEDS ORDERED: 0.9 % Sodium Chloride 500 ML IVC STA (12:35)
[2019-09-20 13:55] LABS: Basophils % 0.2 %; Hemoglobin 10.1 g/dL (11.5-15.4); Immature Granulocytes % 1.5 % (0-4); Lymphocytes # 0.8 K/mcL (0.6-4.6); Lymphocytes % 3.4 %; Mean Corpuscular HGB Conc 33.7 g/dL (31.6-35.5); Mean Platelet Volume 9.2 fL (9.4-12.4); Monocytes % 4.2 %; Neutrophils # 21.1 K/mcL (1.6-8.9); Platelet Count 412 K/mcL (140-400); Red Blood Count 3.26 M/mcL (3.82-4.97); Red Cell Distribution Width 14.6 % (11.5-14.5); Segmented Neutrophils % 90.7 %; White Blood Count 23.3 K/mcL (4.3-11.1)
[2019-09-20 13:56] LABS: Basophils # 0.1 K/mcL (0.0-0.2); Platelet Estimate Normal (Normal)
[2019-09-20 14:17] LABS: Calcium 8.5 mg/dL (8.6-10.3); Potassium 2.4 mEq/L (3.5-5.1)
[2019-09-20] MEDS ORDERED: Ondansetron 4 MG/2 ML VIAL IVP PRN (16:02)
[2019-09-20] MEDS ORDERED: Naloxone 0.4 MG/ML INJ IVP PRN (16:02)
[2019-09-20] MEDS ORDERED: Potassium Chloride Elixir 20 MEQ/15 ML UDC PO ONE (16:04)
[2019-09-20] MEDS ORDERED: Acetaminophen 325 MG TABLET PO PRN (16:34)
[2019-09-20] MEDS: 0.9 % Sodium Chloride w KCl 40 MEQ/1,000 ML MLS IVC SCH (18:58)
[2019-09-20] MEDS: *HR* Heparin 5,000 UNIT/ML VIAL SQ SCH (18:58)
[2019-09-21 04:57] LABS: Basophils % 0.2 %; Eosinophils # 0.1 K/mcL (0.0-0.6); Hematocrit 27.3 % (35.3-44.9); Hemoglobin 8.9 g/dL (11.5-15.4); Immature Granulocytes % 2.2 % (0-4); Mean Corpuscular HGB Conc 32.6 g/dL (31.6-35.5); Mean Corpuscular Hemoglobin 30.9 pg (28.0-33.3); Mean Corpuscular Volume 94.8 fL (83.0-100.0); Mean Platelet Volume 9.1 fL (9.4-12.4); Monocytes # 0.8 K/mcL (0.0-1.3); Neutrophils # 10.7 K/mcL (1.6-8.9); Platelet Count 345 K/mcL (140-400); Red Blood Count 2.88 M/mcL (3.82-4.97); Red Cell Distribution Width 15.1 % (11.5-14.5); Segmented Neutrophils % 82.6 %
[2019-09-21] MEDS: *HR* Heparin 5,000 UNIT/ML VIAL SQ SCH ×2 (05:09→17:34)
[2019-09-21 05:24] LABS: Potassium 3.1 mEq/L (3.5-5.1)
[2019-09-21] MEDS: 0.9 % Sodium Chloride w KCl 40 MEQ/1,000 ML MLS IVC SCH (09:04)
[2019-09-21] MEDS: amLODIPine 5 MG TABLET PO SCH (09:04)
[2019-09-22 01:11] LABS: Occult Blood,Stool Positive (Negative)
[2019-09-22] MEDS: 0.9 % Sodium Chloride w KCl 40 MEQ/1,000 ML MLS IVC SCH (02:00)
[2019-09-22 03:02] LABS: Campylobacter by PCR Not detected (Not detect)
[2019-09-22 03:03] LABS: C.difficile Toxin A/B Gene PCR DETECTED (Not detect); Enteroaggregative E.coli(EAEC) Not detected (Not detect); Enteropathogenic E.coli(EPEC) Not detected (Not detect); Enterotoxigenic E.coli (ETEC) Not detected (Not detect); Plesiomonas shigelloides PCR Not detected (Not detect); Salmonella PCR Not detected (Not detect); Vibrio PCR Not detected (Not detect); Vibrio cholerae PCR Not detected (Not detect); Yersinia enterocolitica PCR Not detected (Not detect)
[2019-09-22 03:04] LABS: Adenovirus F 40/41 PCR Not detected (Not detect); Astrovirus PCR Not detected (Not detect); Cryptosporidium by PCR Not detected (Not detect); Cyclospora cayetanensis PCR Not detected (Not detect); E. coli O157 by PCR Not detected (Not detect); Entamoeba histolytica PCR Not detected (Not detect); Giardia lamblia PCR Not detected (Not detect); Norovirus GI/GII PCR Not detected (Not detect); Rotavirus A PCR Not detected (Not detect); Sapovirus PCR Not detected (Not detect); Shig/EnteroinvasiveE coli EIEC Not detected (Not detect); Shigalike tox-prod E coli STEC Not detected (Not detect)
[2019-09-22 04:14] LABS: Eosinophils % 0.2 %; Hematocrit 28.1 % (35.3-44.9); Hemoglobin 9.2 g/dL (11.5-15.4); Immature Granulocytes % 2.1 % (0-4); Lymphocytes % 7.2 %; Mean Corpuscular HGB Conc 32.7 g/dL (31.6-35.5); Mean Corpuscular Hemoglobin 30.5 pg (28.0-33.3); Mean Platelet Volume 9.1 fL (9.4-12.4); Platelet Count 382 K/mcL (140-400); Red Blood Count 3.02 M/mcL (3.82-4.97); Red Cell Distribution Width 14.8 % (11.5-14.5); Segmented Neutrophils % 83.4 %; White Blood Count 15.2 K/mcL (4.3-11.1)
[2019-09-22 04:15] LABS: Basophils % 0.1 %; Lymphocytes # 1.1 K/mcL (0.6-4.6); Monocytes # 1.1 K/mcL (0.0-1.3); Neutrophils # 12.7 K/mcL (1.6-8.9)
[2019-09-22 04:32] LABS: Potassium 3.7 mEq/L (3.5-5.1)
[2019-09-22] MEDS: Vancomycin Oral Soln 125 MG/2.5 ML UDC PO SCH ×2 (06:09→14:40)
[2019-09-22] MEDS: *HR* Heparin 5,000 UNIT/ML VIAL SQ SCH (06:11)
[2019-09-22] MEDS ORDERED: 0.9 % Sodium Chloride 500 ML ONE (08:53)
[2019-09-22] MEDS ORDERED: Isovue-300 50ML VIAL IVP ONE (08:54)
[2019-09-22] MEDS ORDERED: Cyanocobalamin (B-12) 1,000 MCG TABLET PO SCH (09:00)
[2019-09-22] MEDS: amLODIPine 5 MG TABLET PO SCH (10:07)
[2019-09-22] MEDS ORDERED: Metoprolol XL (24 HR) Succ 50 MG TAB.ER.24H PO SCH (10:30)
[2019-09-22 10:43] VITALS: BP 150/64
== END 2019-09-22 16:10 | disposition home or self-care (01) ==
LOC: 3ANU 11:42 → EMEROOARM 11:42 → SUATTDRO 15:30 → 3ANU 16:40
PROVIDERS: ADMIT Internal Medicine; ATTEND Internal Medicine

== ENCOUNTER 2020-09-13 18:44 | Inpatient (IN) ==
[2020-09-13 19:35] LABS: Hemoglobin 12.2 g/dL (11.5-15.4); Mean Corpuscular HGB Conc 32.1 g/dL (31.6-35.5); Mean Corpuscular Hemoglobin 31.7 pg (28.0-33.3); Mean Corpuscular Volume 98.7 fL (83.0-100.0); Mean Platelet Volume 10.5 fL (9.4-12.4); Nucleated Red Blood Cells 0.1 /100 WBC (0); Platelet Count 116 K/mcL (140-400); Red Blood Count 3.85 M/mcL (3.82-4.97); Red Cell Distribution Width 14.4 % (11.5-14.5); White Blood Count 13.9 K/mcL (4.3-11.1)
[2020-09-13 19:45] LABS: INR 1.3
[2020-09-13 19:47] LABS: Activated Partial Thrombo Time 25.8 Seconds (26.0-36.0)
[2020-09-13 20:01] LABS: Lymphocytes # 0.8 K/mcL (0.6-4.6); Monocytes # 1.4 K/mcL (0.0-1.3); Neutrophils # 11.7 K/mcL (1.6-8.9); Platelet Estimate Decreased (Normal)
[2020-09-13 20:21] LABS: Alanine Aminotransferase 20 Units/L (7-52); Albumin 4.1 g/dL (3.5-5.7); Alkaline Phosphatase 62 Units/L (34-104); Aspartate Amino Transferase 23 Units/L (13-39); BUN/Creatinine Ratio 12 (6-26); Bilirubin,Direct 0.4 mg/dL (0.0-0.2); Bilirubin,Indirect 0.4 mg/dL (0.0-1.0); Bilirubin,Total 0.8 mg/dL (0.3-1.0); Blood Urea Nitrogen 56 mg/dL (8-23); Calcium 9.9 mg/dL (8.6-10.3); Carbon Dioxide 14 mEq/L (23-29); Chloride 103 mEq/L (98-107); Creatine Kinase 28 Units/L (30-223); Ethanol < 10 mg/dL (Less than 10); Globulin 4.2 g/dL (2.4-3.5); Glucose 96 mg/dL (70-105); Osmolality,Calculated 297 (280-300); Sodium 136 mEq/L (136-145); Total Protein 8.3 g/dL (6.4-8.9); Troponin I 0.03 ng/mL (< 0.04); eGFR For African Americans 11 (> 60); eGFR For Non-African Americans 9 (> 60)
[2020-09-13] MEDS ORDERED: cefTRIAXone 1,000 MG in Water for inj. (sterile) 10 ML IVP ONE (20:28)
[2020-09-13] MEDS ORDERED: 0.9 % Sodium Chloride 1,000 ML IVC ONE ×3 (20:28→21:47)
[2020-09-13] MEDS ORDERED: Azithromycin 500 MG in 0.9 % Sodium Chloride 250 ML IVPB ONE (20:28)
[2020-09-13 21:41] LABS: Amphetamine Screen,Urine Negative ng/mL (Cutoff=1000); Bacteria,Urine Few per hpf (None-Few); Barbiturate Screen,Urine Negative ng/mL (Cutoff=200); Benzodiazepines Screen,Urine Negative ng/mL (Cutoff=200); Bilirubin,Urine Negative (Negative); Blood,Urine Small (Negative); Cannabinoid Screen,Urine Negative ng/mL (Cutoff = 50); Clarity,Urine Turbid (Clear); Cocaine Screen,Urine Negative ng/mL (Cutoff= 300); Color,Urine Light-Orange (Yellow); Glucose,Urine (UA) Normal (Normal); Ketones,Urine Negative (Negative); Leukocyte Esterase,Urine Large (Negative); Mucus,Urine Few per lpf (None-Few); Nitrite,Urine Negative (Negative); Opiate Screen,Urine Negative ng/mL (Cutoff=300); PH,Urine 6.5 pH Units (5.0-8.0); Phencyclidine Screen,Urine Negative ng/mL (Cutoff=25); Protein,Urine 200 mg/dL (Neg-Trace); Specific Gravity,Urine 1.015 (1.010-1.025); Squamous Epithelial Cell,Urine Few per hpf (None-Few); Urobilinogen,Urine Normal (Normal); WBC,Urine TNTC per hpf (0-3)
[2020-09-13] MEDS ORDERED: Cefepime HCl 1,000 MG in Water for inj. (sterile) 10 ML IVPB ONE (22:25)
[2020-09-13] MEDS ORDERED: Ondansetron 4 MG/2 ML VIAL IVP PRN (23:40)
[2020-09-13] MEDS ORDERED: Naloxone 0.4 MG/ML INJ IVP PRN (23:40)
[2020-09-13] MEDS ORDERED: 0.9 % Sodium Chloride 1,000 ML IVC SCH (23:45)
[2020-09-13 23:47] LABS: Adenovirus Not Detected (Not Detect); Bordetella Pertussis Not Detected (Not Detect); Chlamydophila pneumoniae Not Detected (Not Detect); Coronavirus 229E Not Detected (Not Detect); Coronavirus HKU1 Not Detected (Not Detect); Coronavirus NL63 Not Detected (Not Detect); Coronavirus OC43 Not Detected (Not Detect); Human Metapneumovirus Not Detected (Not Detect); Human Rhinovirus/Enterovirus Not Detected (Not Detect); Influenza A Subtype 2009 H1 Not Detected (Not Detect); Influenza B Not Detected (Not Detect); Mycoplasma pneumoniae Not Detected (Not Detect); Parainfluenza Virus 1 Not Detected (Not Detect); Parainfluenza Virus 2 Not Detected (Not Detect); Parainfluenza Virus 3 Not Detected (Not Detect); Parainfluenza Virus 4 Not Detected (Not Detect); Respiratory Syncytial Virus Not Detected (Not Detect); SARS-CoV-2 Not Detected (Not Detect)
[2020-09-14 02:23] LABS: Calcium 8.2 mg/dL (8.6-10.3); Potassium 4.3 mEq/L (3.5-5.1)
[2020-09-14 03:25] LABS: Hemoglobin 10.7 g/dL (11.5-15.4)
[2020-09-14 03:27] LABS: Immature Platelets 3.1 % (1.1-6.1); Mean Corpuscular HGB Conc 33.4 g/dL (31.6-35.5); Mean Corpuscular Hemoglobin 31.8 pg (28.0-33.3); Red Blood Count 3.37 M/mcL (3.82-4.97); Red Cell Distribution Width 14.4 % (11.5-14.5); White Blood Count 10.8 K/mcL (4.3-11.1)
[2020-09-14] MEDS ORDERED: Sodium Bicarbonate 150 MEQ in Water for inj. (sterile) 1,000 ML IVC SCH (03:47)
[2020-09-14 03:48] LABS: Platelet Count 69 K/mcL (140-400)
[2020-09-14 04:20] LABS: Lymphocytes # 1.3 K/mcL (0.6-4.6); Monocytes # 0.7 K/mcL (0.0-1.3); Neutrophils # 8.6 K/mcL (1.6-8.9); Platelet Estimate Decreased (Normal); Toxic Granulation Present (Not Present)
[2020-09-14] MEDS: *HR* Heparin 5,000 UNIT/ML VIAL SQ SCH ×2 (04:42→17:46)
[2020-09-14] MEDS: Piperacillin/Tazobactam 3.375 GM in 0.9 % Sodium Chloride Mini Bag 100 ML IVPB SCH ×2 (04:42→17:45)
[2020-09-14] MEDS ORDERED: 0.9 % Sodium Chloride 500 ML ONE (08:49)
[2020-09-14] MEDS ORDERED: Isovue-300 50ML VIAL IVP ONE (09:07)
[2020-09-15 02:36] LABS: Hematocrit 28.4 % (35.3-44.9); Hemoglobin 9.4 g/dL (11.5-15.4); Immature Platelets 4.4 % (1.1-6.1); Mean Corpuscular HGB Conc 33.1 g/dL (31.6-35.5); Mean Corpuscular Hemoglobin 31.4 pg (28.0-33.3); Mean Platelet Volume 11.5 fL (9.4-12.4); Red Blood Count 2.99 M/mcL (3.82-4.97); Red Cell Distribution Width 14.8 % (11.5-14.5)
[2020-09-15 03:13] LABS: Calcium 7.5 mg/dL (8.6-10.3); Magnesium 1.4 mg/dL (1.6-2.6); Phosphorous 3.3 mg/dL (2.7-4.5); Potassium 3.7 mEq/L (3.5-5.1)
[2020-09-15] MEDS: *HR* Heparin 5,000 UNIT/ML VIAL SQ SCH ×2 (06:08→17:26)
[2020-09-15] MEDS: SODIUM ZIRCONIUM CYCLOSILICATE 5 GM POWD.PACK PO SCH (06:08)
[2020-09-15] MEDS: Piperacillin/Tazobactam 3.375 GM in 0.9 % Sodium Chloride Mini Bag 100 ML IVPB SCH ×2 (06:09→17:26)
[2020-09-15] MEDS: Metoprolol XL (24 HR) Succ 50 MG TAB.ER.24H PO SCH (22:53)
[2020-09-16 01:18] LABS: Hematocrit 29.5 % (35.3-44.9); Hemoglobin 9.9 g/dL (11.5-15.4); Immature Platelets 5.1 % (1.1-6.1); Mean Corpuscular HGB Conc 33.6 g/dL (31.6-35.5); Mean Corpuscular Hemoglobin 31.5 pg (28.0-33.3); Mean Corpuscular Volume 93.9 fL (83.0-100.0); Mean Platelet Volume 11.1 fL (9.4-12.4); Red Blood Count 3.14 M/mcL (3.82-4.97); Red Cell Distribution Width 14.3 % (11.5-14.5); White Blood Count 13.2 K/mcL (4.3-11.1)
[2020-09-16 01:19] LABS: Platelet Count 71 K/mcL (140-400)
[2020-09-16 01:41] LABS: Calcium 7.8 mg/dL (8.6-10.3); Potassium 3.2 mEq/L (3.5-5.1)
[2020-09-16 01:42] LABS: Anisocytosis 1+ (Not Present); Lymphocytes # 1.6 K/mcL (0.6-4.6); Neutrophils # 11.4 K/mcL (1.6-8.9); Platelet Estimate Decreased (Normal); Reactive Lymphocytes Present (Not Present); Toxic Granulation Present (Not Present)
[2020-09-16 02:00] LABS: Folate 11.8 ng/mL (3.0-16.0)
[2020-09-16] MEDS: SODIUM ZIRCONIUM CYCLOSILICATE 5 GM POWD.PACK PO SCH (06:08)
[2020-09-16] MEDS: *HR* Heparin 5,000 UNIT/ML VIAL SQ SCH ×2 (06:20→17:08)
[2020-09-16] MEDS: Piperacillin/Tazobactam 3.375 GM in 0.9 % Sodium Chloride Mini Bag 100 ML IVPB SCH (06:20)
[2020-09-16] MEDS: Metoprolol XL (24 HR) Succ 50 MG TAB.ER.24H PO SCH (08:50)
[2020-09-16] MEDS: amLODIPine 5 MG TABLET PO SCH (12:08)
[2020-09-16] MEDS ORDERED: cefTRIAXone 2,000 MG in Water for inj. (sterile) 20 ML IVP SCH (18:00)
[2020-09-17] MEDS: *HR* Heparin 5,000 UNIT/ML VIAL SQ SCH (05:15)
[2020-09-17 06:49] LABS: Basophils % 0.4 %; Eosinophils # 0.1 K/mcL (0.0-0.6); Eosinophils % 1.2 %; Hematocrit 30.4 % (35.3-44.9); Hemoglobin 10.1 g/dL (11.5-15.4); Immature Granulocytes % 3.4 % (0-4); Lymphocytes # 0.7 K/mcL (0.6-4.6); Lymphocytes % 7.3 %; Mean Corpuscular HGB Conc 33.2 g/dL (31.6-35.5); Mean Corpuscular Hemoglobin 31.1 pg (28.0-33.3); Mean Corpuscular Volume 93.5 fL (83.0-100.0); Mean Platelet Volume 11.1 fL (9.4-12.4); Monocytes # 0.6 K/mcL (0.0-1.3); Neutrophils # 8.2 K/mcL (1.6-8.9); Platelet Count 107 K/mcL (140-400); Red Blood Count 3.25 M/mcL (3.82-4.97); Red Cell Distribution Width 14.2 % (11.5-14.5); Segmented Neutrophils % 81.7 %; White Blood Count 10.1 K/mcL (4.3-11.1)
[2020-09-17 07:07] LABS: Calcium 8.1 mg/dL (8.6-10.3)
[2020-09-17] MEDS: Metoprolol XL (24 HR) Succ 50 MG TAB.ER.24H PO SCH (09:14)
[2020-09-17] MEDS: amLODIPine 5 MG TABLET PO SCH (09:14)
[2020-09-17 11:17] VITALS: BP 150/72
== END 2020-09-17 16:22 | disposition home or self-care (01) | DRG 698 ==
LOC: 2NNU 18:44 → EMEROOARM 18:44 → 2NNU 09-14 00:14 → SUATTDRO 09-14 11:45 → 2ANU 09-14 20:36
PROVIDERS: ADMIT Student in an Organized Health Care Education/Training Program; ATTEND Internal Medicine

== ENCOUNTER 2022-03-20 12:39 | Inpatient (IN) ==
[2022-03-20 14:08] LABS: Basophils % 0.2 %; Hematocrit 34.4 % (35.3-44.9); Immature Granulocytes % 1.3 % (0-4); Lymphocytes # 0.5 K/mcL (0.6-4.6); Mean Corpuscular Hemoglobin 31.1 pg (28.0-33.3); Mean Corpuscular Volume 97.2 fL (83.0-100.0); Mean Platelet Volume 9.4 fL (9.4-12.4); Monocytes # 1.1 K/mcL (0.0-1.3); Monocytes % 4.5 %; Platelet Count 281 K/mcL (140-400); Red Blood Count 3.54 M/mcL (3.82-4.97); White Blood Count 23.3 K/mcL (4.3-11.1)
[2022-03-20 14:11] LABS: Basophils # 0.1 K/mcL (0.0-0.2); Neutrophils # 21.4 K/mcL (1.6-8.9)
[2022-03-20 14:27] LABS: Platelet Estimate Normal (Normal)
[2022-03-20 14:29] LABS: Potassium 4.9 mEq/L (3.5-5.1)
[2022-03-20 14:51] LABS: Troponin I 0.06 ng/mL (< 0.04)
[2022-03-20] MEDS ORDERED: Piperacillin/Tazobactam 3.375 GM VIAL ONE (18:40)
[2022-03-20] MEDS ORDERED: 0.9 % Sodium Chloride 250 ML ONE ×2 (18:40→19:54)
[2022-03-20] MEDS ORDERED: Piperacillin/Tazobactam 3.375 GM in 0.9 % Sodium Chloride Mini Bag 100 ML IVPB ONE (18:45)
[2022-03-20] MEDS ORDERED: Vancomycin 1,000 MG VIAL ONE (19:54)
[2022-03-21] MEDS ORDERED: 0.9 % Sodium Chloride 1,000 ML ONE (00:36)
[2022-03-21] MEDS ORDERED: Ondansetron 4 MG/2 ML VIAL IVP PRN (02:30)
[2022-03-21] MEDS ORDERED: 0.9 % Sodium Chloride 1,000 ML IVC ONE (02:30)
[2022-03-21] MEDS ORDERED: Naloxone 0.4 MG/ML INJ IVP PRN (04:25)
[2022-03-21 05:18] LABS: Mean Corpuscular HGB Conc 32.4 g/dL (31.6-35.5); Mean Corpuscular Hemoglobin 31.2 pg (28.0-33.3); Mean Corpuscular Volume 96.3 fL (83.0-100.0); Mean Platelet Volume 9.7 fL (9.4-12.4); Platelet Count 252 K/mcL (140-400); Red Blood Count 3.01 M/mcL (3.82-4.97); Red Cell Distribution Width 14.2 % (11.5-14.5); White Blood Count 20.4 K/mcL (4.3-11.1)
[2022-03-21 05:21] LABS: Hemoglobin 9.4 g/dL (11.5-15.4)
[2022-03-21] MEDS: cefTRIAXone 1,000 MG in 0.9 % Sodium Chloride Mini Bag 100 ML IVPB SCH (05:25)
[2022-03-21 05:27] LABS: Calcium 8.3 mg/dL (8.6-10.3); Potassium 4.6 mEq/L (3.5-5.1)
[2022-03-21 05:31] LABS: Troponin I 0.04 ng/mL (< 0.04)
[2022-03-21] MEDS: *HR* Heparin 5,000 UNIT/ML VIAL SQ SCH ×3 (07:13→20:29)
[2022-03-21] MEDS ORDERED: cefTRIAXone 1,000 MG in Water for inj. (sterile) 10 ML IVP SCH (09:00)
[2022-03-21] MEDS: 0.9 % Sodium Chloride 1,000 ML IVC SCH (09:08)
[2022-03-21] MEDS ORDERED: 0.9 % Sodium Chloride 500 ML ONE (14:14)
[2022-03-21 15:58] LABS: INR 1.2; Prothrombin Time 13.2 Seconds (9.4-12.1)
[2022-03-22 03:14] LABS: Hematocrit 29.1 % (35.3-44.9); Hemoglobin 9.3 g/dL (11.5-15.4); Mean Platelet Volume 9.2 fL (9.4-12.4); Platelet Count 266 K/mcL (140-400); Red Cell Distribution Width 14.3 % (11.5-14.5); White Blood Count 12.1 K/mcL (4.3-11.1)
[2022-03-22 03:32] LABS: Calcium 8.3 mg/dL (8.6-10.3)
[2022-03-22] MEDS: cefTRIAXone 1,000 MG in 0.9 % Sodium Chloride Mini Bag 100 ML IVPB SCH (05:37)
[2022-03-22] MEDS: *HR* Heparin 5,000 UNIT/ML VIAL SQ SCH ×3 (05:41→21:57)
[2022-03-22] MEDS: Iron Polysaccharide Complex 150 MG CAPSULE PO SCH (09:27)
[2022-03-22] MEDS: Cyanocobalamin (B-12) 1,000 MCG TABLET PO SCH (09:27)
[2022-03-22] MEDS: 0.9 % Sodium Chloride 1,000 ML IVC SCH (09:27)
[2022-03-22 09:33] LABS: Bilirubin,Urine Negative (Negative); Blood,Urine Small (Negative); Budding Yeast,Urine Few per hpf (None Seen); Clarity,Urine Clear (Clear); Color,Urine Colorless (Yellow); Glucose,Urine (UA) Normal (Normal); Ketones,Urine Negative (Negative); Leukocyte Esterase,Urine Large (Negative); Mucus,Urine Few per lpf (None-Few); Nitrite,Urine Negative (Negative); Protein,Urine 50 mg/dL (Neg-Trace); Specific Gravity,Urine 1.014 (1.010-1.025); Squamous Epithelial Cell,Urine Few per hpf (None-Few); Urobilinogen,Urine Normal (Normal); WBC,Urine 30-50 per hpf (0-3)
[2022-03-22] MEDS ORDERED: 0.9 % Sodium Chloride 500 ML ONE (11:53)
[2022-03-22] MEDS ORDERED: *HR* FentaNYL (PF) 100 MCG/2 ML VIAL IVP ONE (12:03)
[2022-03-22] MEDS ORDERED: *HR* FentaNYL (PF) 100 MCG/2 ML VIAL ONE (12:03)
[2022-03-22] MEDS ORDERED: Iopamidol - 300 50 ML VIAL IVP ONE (12:12)
[2022-03-22 23:54] LABS: Bilirubin,Urine Negative (Negative); Blood,Urine Moderate (Negative); Clarity,Urine Ex.Turbid (Clear); Color,Urine Light-Orange (Yellow); Glucose,Urine (UA) Normal (Normal); Ketones,Urine Negative (Negative); PH,Urine 6.5 pH Units (5.0-8.0); Protein,Urine >=300 mg/dL (Neg-Trace); Specific Gravity,Urine 1.018 (1.010-1.025); Urobilinogen,Urine Normal (Normal)
[2022-03-22 23:55] LABS: Bacteria,Urine Few per hpf (None-Few); Budding Yeast,Urine Many per hpf (None Seen); Leukocyte Esterase,Urine Large (Negative); Nitrite,Urine Negative (Negative); RBC,Urine 50-100 per hpf (0-3); Squamous Epithelial Cell,Urine Few per hpf (None-Few); WBC,Urine TNTC per hpf (0-3)
[2022-03-23 03:56] LABS: Basophils # 0.1 K/mcL (0.0-0.2); Basophils % 0.6 %; Eosinophils # 0.1 K/mcL (0.0-0.6); Eosinophils % 0.7 %; Hematocrit 30.1 % (35.3-44.9); Hemoglobin 9.3 g/dL (11.5-15.4); Immature Granulocytes % 4.2 % (0-4); Lymphocytes # 0.7 K/mcL (0.6-4.6); Lymphocytes % 6.1 %; Mean Corpuscular HGB Conc 30.9 g/dL (31.6-35.5); Mean Corpuscular Hemoglobin 30.9 pg (28.0-33.3); Mean Platelet Volume 9.3 fL (9.4-12.4); Monocytes # 0.7 K/mcL (0.0-1.3); Monocytes % 6.6 %; Neutrophils # 8.7 K/mcL (1.6-8.9); Platelet Count 236 K/mcL (140-400); Red Blood Count 3.01 M/mcL (3.82-4.97); Red Cell Distribution Width 14.7 % (11.5-14.5); Segmented Neutrophils % 81.8 %; White Blood Count 10.7 K/mcL (4.3-11.1)
[2022-03-23 04:16] LABS: Calcium 7.6 mg/dL (8.6-10.3); Potassium 3.8 mEq/L (3.5-5.1)
[2022-03-23] MEDS: *HR* Heparin 5,000 UNIT/ML VIAL SQ SCH ×2 (05:24→15:59)
[2022-03-23] MEDS: cefTRIAXone 1,000 MG in 0.9 % Sodium Chloride Mini Bag 100 ML IVPB SCH (05:25)
[2022-03-23] MEDS: 0.9 % Sodium Chloride 1,000 ML IVC SCH (05:28)
[2022-03-23] MEDS: Cyanocobalamin (B-12) 1,000 MCG TABLET PO SCH (09:01)
[2022-03-23] MEDS: Iron Polysaccharide Complex 150 MG CAPSULE PO SCH (09:01)
[2022-03-23] MEDS ORDERED: Fluconazole 100 MG TABLET PO SCH (09:30)
[2022-03-23 10:52] VITALS: O2SAT 98
[2022-03-23] MEDS ORDERED: Metoprolol XL (24 HR) Succ 50 MG TAB.ER.24H PO SCH (10:53)
[2022-03-23] MEDS ORDERED: amLODIPine 5 MG TABLET PO SCH (11:00)
[2022-03-23 16:22] VITALS: BP 139/62; PULSE 80; TEMP 98.7
[2022-03-24] MEDS ORDERED: SODIUM ZIRCONIUM CYCLOSILICATE 5 GM POWD.PACK PO SCH (09:00)
== END 2022-03-23 17:25 | disposition home health service (06) | DRG 872 ==
LOC: EMEROOARM 12:39 → 3ANU 12:39 → SUATTDRO 03-21 02:23
PROVIDERS: ADMIT Internal Medicine; ATTEND Registered Nurse

== ENCOUNTER 2022-03-31 18:01 | Inpatient (IN) ==
[2022-03-31] MEDS ORDERED: Ondansetron 4 MG/2 ML VIAL IVP PRN (21:25)
[2022-03-31] MEDS ORDERED: Acetaminophen 325 MG TABLET PO PRN (21:25)
[2022-03-31] MEDS ORDERED: Naloxone 0.4 MG/ML INJ IVP PRN (21:25)
[2022-03-31 22:26] LABS: INR 1.4; Prothrombin Time 15.1 Seconds (9.4-12.1)
[2022-03-31 22:45] LABS: Hematocrit 27.7 % (35.3-44.9); Hemoglobin 9.1 g/dL (11.5-15.4); Mean Corpuscular HGB Conc 32.9 g/dL (31.6-35.5); Mean Corpuscular Hemoglobin 30.5 pg (28.0-33.3); Mean Platelet Volume 9.5 fL (9.4-12.4); Platelet Count 276 K/mcL (140-400); Red Blood Count 2.98 M/mcL (3.82-4.97); Red Cell Distribution Width 14.8 % (11.5-14.5)
[2022-03-31 22:47] LABS: White Blood Count 33.2 K/mcL (4.3-11.1)
[2022-03-31 23:03] LABS: Calcium 8.1 mg/dL (8.6-10.3); Monocytes # 1.3 K/mcL (0.0-1.3); Neutrophils # 29.9 K/mcL (1.6-8.9); Potassium 4.1 mEq/L (3.5-5.1)
[2022-03-31 23:05] LABS: Magnesium 1.6 mg/dL (1.6-2.6)
[2022-03-31 23:14] LABS: Troponin I 0.3 ng/mL (< 0.04)
[2022-03-31] MEDS ORDERED: *HR* Heparin 5,000 UNIT/ML VIAL IVP PRN ×2 (23:23)
[2022-03-31] MEDS ORDERED: *HR* Heparin 5,000 UNIT/ML VIAL IVP ONE (23:23)
[2022-03-31] MEDS ORDERED: Heparin 25,000UNIT/250ML 1/2NS 25,000 UNIT/250 ML IV.SOLN IVC SCH (23:30)
[2022-04-01] MEDS ORDERED: 0.9 % Sodium Chloride 1,000 ML IVC SCH (00:30)
[2022-04-01] MEDS: Piperacillin/Tazobactam 3.375 GM in 0.9 % Sodium Chloride Mini Bag 100 ML IVPB SCH ×3 (01:02→22:36)
[2022-04-01 04:06] LABS: Basophils % 0.2 %; Eosinophils % 0.1 %; Mean Corpuscular HGB Conc 32.3 g/dL (31.6-35.5); Mean Corpuscular Hemoglobin 30.4 pg (28.0-33.3); Mean Platelet Volume 10.1 fL (9.4-12.4)
[2022-04-01 04:08] LABS: Basophils # 0.1 K/mcL (0.0-0.2); Hematocrit 29.7 % (35.3-44.9); Hemoglobin 9.6 g/dL (11.5-15.4); Immature Granulocytes % 4.5 % (0-4); Lymphocytes # 0.6 K/mcL (0.6-4.6); Lymphocytes % 1.6 %; Monocytes # 1.3 K/mcL (0.0-1.3); Monocytes % 3.4 %; Platelet Count 281 K/mcL (140-400); Red Blood Count 3.16 M/mcL (3.82-4.97); Red Cell Distribution Width 14.7 % (11.5-14.5); Segmented Neutrophils % 90.2 %
[2022-04-01 04:10] LABS: Neutrophils # 34.2 K/mcL (1.6-8.9)
[2022-04-01 04:11] LABS: Troponin I 0.08 ng/mL (< 0.04)
[2022-04-01 04:12] LABS: Platelet Estimate Normal (Normal); White Blood Count 37.9 K/mcL (4.3-11.1)
[2022-04-01 04:31] LABS: Folate 13.9 ng/mL (3.0-16.0)
[2022-04-01 04:32] LABS: BUN/Creatinine Ratio 18 (6-26); Blood Urea Nitrogen 57 mg/dL (8-23); Calcium 8.1 mg/dL (8.6-10.3); Carbon Dioxide 12 mEq/L (23-29); Chloride 107 mEq/L (98-107); Ferritin 961 ng/mL (10-120); Glucose 97 mg/dL (70-105); Iron < 10 mcg/dL (50-170); Magnesium 1.7 mg/dL (1.6-2.6); Osmolality,Calculated 290 (280-300); Potassium 4.7 mEq/L (3.5-5.1); Sodium 132 mEq/L (136-145); Transferrin 113 mg/dL (203-362)
[2022-04-01] MEDS ORDERED: *HR* Heparin 5,000 UNIT/ML VIAL SQ SCH (06:00)
[2022-04-01] MEDS ORDERED: 0.9 % Sodium Chloride 1,000 ML IVC ONE (07:53)
[2022-04-01] MEDS: Metoprolol XL (24 HR) Succ 50 MG TAB.ER.24H PO SCH (08:39)
[2022-04-01] MEDS ORDERED: Fluconazole 400 MG/200 ML 400 MG/200 ML BAG IVPB SCH (09:00)
[2022-04-01 11:37] LABS: Bacteria,Urine Moderate per hpf (None-Few); Bilirubin,Urine Negative (Negative); Blood,Urine Small (Negative); Clarity,Urine Turbid (Clear); Color,Urine Light-Orange (Yellow); Glucose,Urine (UA) Normal (Normal); Ketones,Urine Negative (Negative); Leukocyte Esterase,Urine Large (Negative); Mucus,Urine Few per lpf (None-Few); Nitrite,Urine Negative (Negative); Protein,Urine 50 mg/dL (Neg-Trace); Specific Gravity,Urine 1.015 (1.010-1.025); Squamous Epithelial Cell,Urine Few per hpf (None-Few); Urobilinogen,Urine Normal (Normal); WBC,Urine 15-30 per hpf (0-3)
[2022-04-01] MEDS: *HR* Heparin 5,000 UNIT/ML VIAL SQ SCH (18:02)
[2022-04-01] MEDS ORDERED: Piperacillin/Tazobactam 3.375 GM in 0.9 % Sodium Chloride Mini Bag 100 ML IVPB SCH (22:39)
[2022-04-02 06:22] LABS: Calcium 7.6 mg/dL (8.6-10.3); Potassium 5.2 mEq/L (3.5-5.1)
[2022-04-02] MEDS ORDERED: Vancomycin 500 MG in 0.9 % Sodium Chloride Mini Bag 100 ML IVPB ONE (06:30)
[2022-04-02] MEDS: *HR* Heparin 5,000 UNIT/ML VIAL SQ SCH ×2 (06:41→17:36)
[2022-04-02] MEDS ORDERED: Sodium Bicarbonate 150 MEQ in D5% in Water 1,000 ML IVC SCH (07:00)
[2022-04-02] MEDS: Sodium Bicarbonate 150 MEQ in Water for inj. (sterile) 1,000 ML IVC SCH ×2 (08:50→18:45)
[2022-04-02] MEDS: Fluconazole 200 MG/100 ML 200 MG/100 ML BAG IVPB SCH (08:57)
[2022-04-02] MEDS: SODIUM ZIRCONIUM CYCLOSILICATE 5 GM POWD.PACK PO SCH (08:58)
[2022-04-02] MEDS: Metoprolol XL (24 HR) Succ 50 MG TAB.ER.24H PO SCH (08:58)
[2022-04-02] MEDS: Piperacillin/Tazobactam 3.375 GM in 0.9 % Sodium Chloride Mini Bag 100 ML IVPB SCH (11:16)
[2022-04-02 11:56] LABS: Mean Platelet Volume 10.7 fL (9.4-12.4)
[2022-04-02 11:57] LABS: Hematocrit 32.7 % (35.3-44.9); Hemoglobin 10.5 g/dL (11.5-15.4); Mean Corpuscular HGB Conc 32.1 g/dL (31.6-35.5); Mean Corpuscular Hemoglobin 30.3 pg (28.0-33.3); Mean Corpuscular Volume 94.2 fL (83.0-100.0); Platelet Count 245 K/mcL (140-400); Red Blood Count 3.47 M/mcL (3.82-4.97); Red Cell Distribution Width 15.3 % (11.5-14.5)
[2022-04-02 12:03] LABS: White Blood Count 54.9 K/mcL (4.3-11.1)
[2022-04-02 16:56] LABS: Nucleated Red Blood Cells 0.4 /100 WBC (0); Red Cell Distribution Width 15.2 % (11.5-14.5)
[2022-04-02 16:57] LABS: Hematocrit 28.3 % (35.3-44.9); Hemoglobin 9.4 g/dL (11.5-15.4); Mean Corpuscular HGB Conc 33.2 g/dL (31.6-35.5); Mean Corpuscular Hemoglobin 30.2 pg (28.0-33.3); Mean Platelet Volume 10.6 fL (9.4-12.4); Platelet Count 225 K/mcL (140-400); Red Blood Count 3.11 M/mcL (3.82-4.97)
[2022-04-02 16:58] LABS: VBG HCO3 15 mEq/L (21-27); VBG PCO2 25 mmHg (41-51); VBG PH 7.38 pH Units (7.32-7.42); VBG PO2 55 mmHg (25-50)
[2022-04-02 17:12] LABS: Calcium 7.1 mg/dL (8.6-10.3); Potassium 4.6 mEq/L (3.5-5.1)
[2022-04-02 17:16] LABS: White Blood Count 49.3 K/mcL (4.3-11.1)
[2022-04-02] MEDS ORDERED: Ringers Solution, Lactated 1,000 ML IVC ONE (17:26)
[2022-04-02 17:43] LABS: Dohle Bodies Present (Not Present); Neutrophils # 42.4 K/mcL (1.6-8.9)
[2022-04-02 17:44] LABS: Platelet Estimate Normal (Normal); Polychromasia 1+ (Not Present)
[2022-04-02 17:45] LABS: Large Platelets Present (Not Present)
[2022-04-03] MEDS: Piperacillin/Tazobactam 3.375 GM in 0.9 % Sodium Chloride Mini Bag 100 ML IVPB SCH ×2 (00:50→09:45)
[2022-04-03] MEDS ORDERED: *HR* LORazepam 0.5 MG TABLET PO PRN (04:05)
[2022-04-03] MEDS: *HR* Heparin 5,000 UNIT/ML VIAL SQ SCH ×2 (05:01→17:02)
[2022-04-03 05:08] LABS: Hemoglobin 8.9 g/dL (11.5-15.4); Red Cell Distribution Width 14.9 % (11.5-14.5)
[2022-04-03 05:09] LABS: Hematocrit 26.3 % (35.3-44.9); Mean Corpuscular HGB Conc 33.8 g/dL (31.6-35.5); Mean Corpuscular Hemoglobin 30.4 pg (28.0-33.3); Mean Corpuscular Volume 89.8 fL (83.0-100.0); Mean Platelet Volume 11.4 fL (9.4-12.4); Platelet Count 201 K/mcL (140-400); Red Blood Count 2.93 M/mcL (3.82-4.97)
[2022-04-03 05:28] LABS: Calcium 6.5 mg/dL (8.6-10.3); Phosphorous 6.7 mg/dL (2.7-4.5); Potassium 4.4 mEq/L (3.5-5.1)
[2022-04-03] MEDS: Sodium Bicarbonate 150 MEQ in Water for inj. (sterile) 1,000 ML IVC SCH ×2 (06:45→17:02)
[2022-04-03] MEDS ORDERED: 0.9 % Sodium Chloride 1,000 ML IV ONE (06:51)
[2022-04-03] MEDS ORDERED: 0.9 % Sodium Chloride 1,000 ML IVC ONE ×2 (07:46→11:26)
[2022-04-03] MEDS ORDERED: Vancomycin Oral Soln 125 MG/2.5 ML UDC PO SCH (09:00)
[2022-04-03] MEDS: Fluconazole 200 MG/100 ML 200 MG/100 ML BAG IVPB SCH (09:46)
[2022-04-03] MEDS: Vancomycin Oral Soln 125 MG/2.5 ML UDC PO SCH ×4 (09:46→20:08)
[2022-04-03] MEDS: Metoprolol XL (24 HR) Succ 50 MG TAB.ER.24H PO SCH (09:47)
[2022-04-03] MEDS: SODIUM ZIRCONIUM CYCLOSILICATE 5 GM POWD.PACK PO SCH (09:47)
[2022-04-03] MEDS ORDERED: Lidocaine -MPF 1% 5 ML AMPUL INFILT ONE (11:05)
[2022-04-03] MEDS: Norepinephrine 4 MG/254 ML IV.SOLN IVC SCH ×2 (11:30→15:25)
[2022-04-03] MEDS ORDERED: Vancomycin 500 MG in 0.9 % Sodium Chloride Mini Bag 100 ML IVPB ONE (13:04)
[2022-04-03] MEDS ORDERED: *HR* LORazepam 2 MG/ML VIAL IVP PRN (15:56)
[2022-04-03] MEDS ORDERED: Scopolamine Patch 1.5 MG PATCH.TD72 TD SCH (15:58)
[2022-04-03] MEDS: Morphine Sulfate 2 MG/ML SYRINGE IVP PRN ×2 (16:10→18:02)
[2022-04-03 18:12] VITALS: BP 57/37; TEMP 97.2; O2SAT 97
[2022-04-03 18:29] VITALS: PULSE 97
== END 2022-04-03 22:57 | disposition expired | DRG 698 ==
LOC: 3ANU → SUATTDRO 20:56 → 2NNU 04-03 12:15
PROVIDERS: ADMIT Pharmacist; ATTEND Internal Medicine